=== PATIENT | male | born 1975 | race Caucasian/White ===

== ENCOUNTER 2017-01-17 10:04 | Inpatient (IN) | payer MEDICARE, MEDICAID ==
[~2017-01-17] VITALS: Ht 180.3 cm; Wt 103.7 kg
[2017-01-17] MEDS ORDERED: AMMONIA AROMATIC INHALANT (FLOOR STOCK) As Ordered ONE (10:07)
[2017-01-17 10:53] LABS: VENOUS BASE EXCESS 0.4 (-2.0-2.0); VENOUS O2 SATURATION 92.2 % (60.0-80.0); VENOUS PARTIAL PRESSURE CO2 36.7 mmHg (38.0-50.0); VENOUS PARTIAL PRESSURE O2 58.1 mmHg (30.0-50.0); VENOUS STANDARD HCO3 24.7 MEQ/L; VENOUS TOTAL CO2 25.3 MEQ/L (24.0-28.0)
--- NOTE | 2017-01-17 10:54 | REP ---
CT Head without contrast HISTORY: Altered mental status COMPARISON: 09/07/2010 There is no intraparenchymal hemorrhage, acute infarct, mass or midline shift. The ventricular system is normal in appearance. There is no extra cerebral collection. There is no fracture. The visualized sinuses are clear. IMPRESSION: There is no intracranial lesion. Signed by Ronald Weiner MD 01/17/2017 10:46 A
[2017-01-17 10:58] LABS: BASO % 0.2 % (0.0-1.0); EOS # 0.1 K/mm3 (0.0-0.50); EOS % 1.4 % (0.0-3.0); LARGE UNSTAINED CELL # 0.2 K/mm3 (0.0-0.4); LARGE UNSTAINED CELL % 1.6 % (0.0-4.0); LYMPH # 2.5 K/mm3 (1.5-4.5); LYMPH % 25.5 % (24.0-44.0); MEAN CORPUSCULAR HEMOGLOBIN 32.6 pg (27.0-33.0); MEAN CORPUSCULAR HGB CONC 34.1 g/dl (32.0-36.5); MEAN CORPUSCULAR VOLUME 95.6 fl (80.0-96.0); MONO # 0.4 K/mm3 (0.0-0.8); MONO % 3.6 % (0.0-5.0); NEUTROPHILS # 6.6 K/mm3 (1.8-7.7); NEUTROPHILS % 67.7 % (36.0-66.0); PLATELET COUNT, AUTOMATED 227 k/mm3 (150-450); RED CELL DISTRIBUTION WIDTH 11.9 % (11.5-14.5); WHITE BLOOD COUNT 9.7 K/mm3 (4.0-10.0)
[2017-01-17 11:15] LABS: OSMOLALITY SERUM 301 MOSM/KG (275-295)
[2017-01-17 11:33] LABS: ALBUMIN 3.9 GM/DL (3.2-5.2); ALBUMIN/GLOBULIN RATIO 1.18 (1.00-1.93); ALKALINE PHOSPHATASE 93 U/L (45-117); ALT/SGPT 20 U/L (12-78); ANION GAP 13 MEQ/L (8-16); AST/SGOT 12 U/L (15-37); BILIRUBIN,DIRECT 0.1 MG/DL (0.0-0.2); BILIRUBIN,TOTAL 0.6 MG/DL (0.2-1.0); BLOOD UREA NITROGEN 14 MG/DL (7-18); CALCIUM LEVEL 8.8 MG/DL (8.5-10.1); CARBON DIOXIDE LEVEL 24 MEQ/L (21-32); CHLORIDE LEVEL 108 MEQ/L (98-107); CREATININE FOR GFR 1.08 MG/DL (0.70-1.30); GLOMERULAR FILTRATION RATE > 60.0 (>60); GLUCOSE, FASTING 102 MG/DL (70-105); POTASSIUM SERUM 3.8 MEQ/L (3.5-5.1); SODIUM LEVEL 145 MEQ/L (136-145); TOTAL PROTEIN 7.2 GM/DL (6.4-8.2)
[2017-01-17] MEDS ORDERED: NS 1,000 ML IV ONE ×2 (11:45→13:15)
[2017-01-17] MEDS ORDERED: CLOZ100T2 PO (19:30)
[2017-01-17] MEDS ORDERED: STOO100C PO (19:30)
[2017-01-17] MEDS ORDERED: LOVA20TA2 PO (19:30)
[2017-01-17] MEDS ORDERED: GEOD40CA2 PO (19:30)
[2017-01-17 21:14] LABS: METHADONE URINE NEGATIVE (NEGATIVE)
--- NOTE | 2017-01-17 21:38 | ECGEPIP ---
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
[2017-01-18 01:51] VITALS: BP 169/78
[2017-01-18] MEDS ORDERED: ACETAMINOPHEN TAB 650MG DOSE (2X325MG) PO PRN (02:00)
[2017-01-18] MEDS ORDERED: MOM 30ML SUSPENSION UDC PO PRN (02:00)
[2017-01-18] MEDS ORDERED: MAALOX 30 ML SUSP *UDC PO PRN (02:00)
[2017-01-18 06:36] VITALS: BP 169/78
--- NOTE | 2017-01-18 09:54 | HPEPDOC ---
Medical History and Physical Date of Admission Jan 17, 2017 at 20:44 History and Physical PCP: None ATTENDING: Dr. Taco Escobedo HPI: 41 yo M admitted to [facility] for unspecified depressive disorder, being medically examined today. Patient states "I don't know" to all history questions. He does not know if he has a primary care provider. He states he does not know where he gets his medications prescribed. He does not make eye contact. There are currently no verbalized complaints or concerns. History is taken from the chart. Patient was brought to the emergency department by EMS after APS went to his residence and found him covered in vomit and feces. Apparently the patient had had a recent history of noncompliance with his medications. The patient was given 2 L IV fluids in the emergency department. Lactic acid on admission was noted to be 2.3 however follow-up was 0.9. The patient has had no further vomiting. No diarrhea. Denies any fevers, chills, weakness, fatigue, CUELLO, CP, SOB, cough, palpitations, abdominal pain, [place] or changes in bowel or bladder habits. PMHx: Hyperlipidemia Chronic constipation Schizophrenia Depression PSHX: None known SOCHX: Resides in: [place] Marital Status: Single Kids: None Employment: Unemployed Tobacco use: Denies ETOH: Denies Illicit Drugs: Denies IV Drug Use: Denies Tattoos done unprofessionally: Denies FAMHX: Mother: , cancer Father: Patient unable to provide Siblings: Patient unable to provide Children: None Unexpected deaths due to medical reasons: None. ROS: As noted in HPI, otherwise 11pt ROS of systems reviewed and unremarkable. Patient answers few questions. No verbalizes concerns. PE: GEN: 41 yo M, appears stated age. Well-nourished, well developed. No acute distress. Alert. Responds to very few questions. Looks away throughout exam and does not make eye contact. Answers " I don't know" often. HEENT: Normocephalic, atraumatic. Pupils are equal, round, and reactive to light. Extraocular movements are intact. No nystagmus appreciated. Sclera are nonicteric. Conjunctiva without injection. Nose midline. Nasal turbinates without bogginess. EACs both patent BL. TMs both visualized and child with good cone of light, no bulging or erythema. No facial asymmetry. Moist mucous membranes. Dentition poor. Pharynx pink and moist. Neck supple, trachea midline. No lymphadenopathy or thyromegaly appreciated. CHEST: Regular rate and rhythm, +S1, +S2 LUNGS: Clear to auscultation bilaterally. No wheezes, rales, or rhonchi. Breathing appears symmetric and easy. Patient is speaking in full sentences. No accessory muscle use. ABD: Round, soft, non-tender, non-distended. +Bowel sounds throughout. No rebound or guarding. No costovertebral angle tenderness. EXT: Pulses 2+ bilaterally dorsalis pedis and radial. No lower extremity edema appreciated. SKIN: [place], dry, warm. Capillary refill <2sec. No rashes. NEURO: Alert and oriented x 3. Cranial nerves III-XII are intact. No focal deficits appreciated. EK01/17/17 SINUS TACHYCARDIA ABNORMAL RHYTHM ECG NO PRIOR FOR COMPARISON. A&P: 41 yo M admitted to [facility] for unspecified depressive disorder 1. Psych. Plan per Psychiatry. EKG on file. 2. Hyperlipidemia. Continue lovastatin 20 mg daily. 3. Chronic constipation. Continue Colace 100 mg daily. 4. Follow up. No Primary Care Provider. Will attempt to establish PCP on discharge. 5. Staff member Ortiz present throughout exam. Vital Signs Vital Signs Date Time Temp Pulse Resp B/P (MAP) Pulse Ox O2 Delivery O2 Flow Rate FiO2 01/18/17 06:36 98.0 100 16 169/78 (108) 99 Room Air Laboratory Data Labs 24H Laboratory Tests 2 01/17/17 10:41: White Blood Count 9.7, Red Blood Count 4.51, Hemoglobin 14.7, Hematocrit 43.1, Mean Corpuscular Volume 95.6, Mean Corpuscular Hemoglobin 32.6, Mean Corpuscular Hemoglobin Concent 34.1, Red Cell Distribution Width 11.9, Platelet Count 227, Neutrophils (%) (Auto) 67.7H, Lymphocytes (%) (Auto) 25.5, Monocytes (%) (Auto) 3.6, Eosinophils (%) (Auto) 1.4, Basophils (%) (Auto) 0.2, Neutrophils # (Auto) 6.6, Lymphocytes # (Auto) 2.5, Monocytes # (Auto) 0.4, Eosinophils # (Auto) 0.1, Basophils # (Auto) 0.0, Large Unclassified Cells % 1.6 , Large Unclassified Cells # 0.2, Blood Gas Bicarbonate Standard 24.7, Venous Blood pH 7.437H, Venous Blood Partial Pressure CO2 36.7L, Venous Blood Partial Pressure O2 58.1H, Venous Blood Total Carbon Dioxide 25.3, Venous Blood HCO3 24.2, Venous Blood Oxygen Saturation 92.2H, Venous Blood Base Excess 0.4, Anion Gap 13, Glomerular Filtration Rate > 60.0, Osmolality 301H, Lactic Acid Level 2.3*H, Calcium Level 8.8, Aspartate Amino Transf (AST/SGOT) 12L, Alanine Aminotransferase (ALT/SGPT) 20, Alkaline Phosphatase 93, Total Bilirubin 0.6, Direct Bilirubin 0.1, Ammonia 18, Total Creatine Kinase 77, Creatine Kinase MB 1.0, Creatine Kinase MB Relative Index 1.29, Troponin I < 0.02, Total Protein 7.2, Albumin 3.9, Albumin/Globulin Ratio 1.18, Thyroid Stimulating Hormone (TSH ) 0.570, Salicylates Level < 1.7L, Acetaminophen Level < 2.0L, Ethyl Alcohol Level < 0.003 01/17/17 14:20: Lactic Acid Level 0.9 01/17/17 20:27: Urine Amphetamines Screen NEGATIVE, Urine Benzodiazepines Screen NEGATIVE, Urine Opiates Screen NEGATIVE, Urine Methadone Screen NEGATIVE, Urine Barbiturates Screen NEGATIVE, Urine Phencyclidine Screen NEGATIVE, Urine Cocaine Metabolite Screen NEGATIVE, Urine Cannabinoids Screen NEGATIVE CBC/BMP Laboratory Tests 01/17/17 10:41 Red Blood Count 4.51, Mean Corpuscular Volume 95.6, Mean Corpuscular Hemoglobin 32.6, Mean Corpuscular Hemoglobin Concent 34.1, Red Cell Distribution Width 11.9 , Neutrophils (%) (Auto) 67.7 H, Lymphocytes (%) (Auto) 25.5, Monocytes (%) ( Auto) 3.6, Eosinophils (%) (Auto) 1.4, Basophils (%) (Auto) 0.2, Neutrophils # ( Auto) 6.6, Lymphocytes # (Auto) 2.5, Monocytes # (Auto) 0.4, Eosinophils # (Auto ) 0.1, Basophils # (Auto) 0.0 Microbiology Microbiology 01/17/17 Blood Culture, Received Pending 01/17/17 Blood Culture, Received Pending Home Medications Scheduled Clozapine (Clozapine) 100 Mg Tab, 300 MG PO QHS Docusate Sodium (Stool Softener) 100 Mg Cap, 100 MG PO DAILY Lovastatin (Lovastatin) 20 Mg Tab, 20 MG PO DAILY Ziprasidone Hydrochloride (Geodon) 40 Mg Cap, 80 MG PO BID Allergies Coded Allergies: Aripiprazole (Verified Adverse Reaction, Unknown, muscle trouble, 01/17/17) Minda Armando Jan 18, 2017 09:54
[2017-01-18] MEDS: DOCUSATE SODIUM 100 MG CAP PO SCH (10:40)
[2017-01-18] MEDS: SIMVASTATIN 20 MG TAB PO SCH (10:40)
[2017-01-18 12:37] LABS: BASO % 0.5 % (0.0-1.0); EOS # 0.1 K/mm3 (0.0-0.50); LARGE UNSTAINED CELL # 0.1 K/mm3 (0.0-0.4); LARGE UNSTAINED CELL % 1.5 % (0.0-4.0); LYMPH # 1.8 K/mm3 (1.5-4.5); LYMPH % 24.7 % (24.0-44.0); MEAN CORPUSCULAR HEMOGLOBIN 32.9 pg (27.0-33.0); MEAN CORPUSCULAR HGB CONC 34.1 g/dl (32.0-36.5); MEAN CORPUSCULAR VOLUME 96.6 fl (80.0-96.0); MONO # 0.4 K/mm3 (0.0-0.8); MONO % 5.7 % (0.0-5.0); NEUTROPHILS # 4.6 K/mm3 (1.8-7.7); NEUTROPHILS % 65.6 % (36.0-66.0); PLATELET COUNT, AUTOMATED 179 k/mm3 (150-450); RED CELL DISTRIBUTION WIDTH 12.2 % (11.5-14.5)
[2017-01-18 18:00] VITALS: BP 142/69
[2017-01-18] MEDS: ZIPRASIDONE 20MG CAPSULE (GEODON) PO SCH (18:16)
[2017-01-18] MEDS: cloZAPine 25 MG TAB (S0136) PO SCH (21:00)
[2017-01-19 06:44] VITALS: BP 140/63
[2017-01-19] MEDS: DOCUSATE SODIUM 100 MG CAP PO SCH (08:25)
[2017-01-19] MEDS: ZIPRASIDONE 20MG CAPSULE (GEODON) PO SCH ×2 (08:25→18:03)
[2017-01-19] MEDS: SIMVASTATIN 20 MG TAB PO SCH (08:25)
--- NOTE | 2017-01-19 11:30 | MHHPE ---
DATE OF ADMISSION: 01/17/2017 CURRENT MEDICATION: - clozapine 300 mg at bedtime - Geodon 80 mg twice a day CHIEF COMPLAINT: The patient was brought to the emergency room by adult protective director case. HISTORY OF PRESENT ILLNESS: This is a 41-year-old white male single living by himself seen by the adult protective director case. The landlord had contacted [employer] ([facility]) due to the smell coming from his apartment. The director case found that he was covered in vomit and feces. The patient was obviously not taking care of himself. The patient is recently in care at the [facility], but has not been taking his psychotropics recently. The patient is not able to give any meaningful history. The staff in emergency contacted his grandfather who reports that the patient had not been taking his medication for a while. The grandfather believes that the patient has been decompensating and not safe to return home. The patient denies any current stressors. He is not a good historian. He denies any and all problems. He reports his appetite is fine. He claims his weight is stable. He does admit to poor concentration and difficulty sleeping. He is not able to explain why he stopped his taking medications. Outpatient records from the [facility] are not available at the time of dictation. PAST PSYCHIATRIC HISTORY: The patient's last psychiatric hospitalization apparently was about 10 years ago here at [facility]. We do have an old record dating from December 2005 with a reference to schizophrenia. He was treated by Dr. Welch on three different antipsychotics - Risperdal, Geodon and Abilify. The patient had a decompensation with a psychosis at that period of time due to poor medication compliance. At the time, he had requested to be sent to [facility], but that was not necessary due to his response to the psychotropics. Somewhere in the interim, the patient has been switched to Clozaril, but again with poor compliance as mentioned above. MEDICAL HISTORY: The patient denies allergies. The patient denies he is not a good historian, so this will need to be clarified. LEGAL HISTORY: None noted. CHEMICAL DEPENDENCY: The patient denies. SOCIAL HISTORY: Unable to obtain from the patient himself. He denies having any family in the area, but obviously his grandfather is a potential resource. FAMILY PSYCHIATRIC HISTORY: Unknown. MENTAL STATUS EXAMINATION: The patient appears alert. He is not cooperative. He is not sure how old he is. Responds "don't know" to all questions regarding orientation. Likely functional not organic.He claims his memory is poor. He appears to be responding to internal stimuli. He denies hearing voices, but is likely hallucinating. His eyes dart here and there. He has poor eye contact. He has obvious thought blocking. He appears paranoid and guarded. He does have body odor and poor hygiene. Insight and judgment appear quite impaired. He is a potential danger to himself due to his poor judgment and inability to care for self. ASSESSMENT: The patient has history of schizophrenia with recent decompensation. DIAGNOSIS: Schizophrenia, multiple episodes, currently in an acute episode. PLAN: Restart Geodon, restart clozapine, ramping up gradually as tolerated. Use of Ativan and Haldol as needed if necessary for psychosis treatment. 9.39 confirmed. Obtain old records from community clinic. [facility]ITAL[facility]
[2017-01-19 18:00] VITALS: BP 139/67
[2017-01-19] MEDS: cloZAPine 25 MG TAB (S0136) PO SCH (22:06)
[2017-01-20 06:52] VITALS: BP 142/79
[2017-01-20] MEDS: ZIPRASIDONE 20MG CAPSULE (GEODON) PO SCH ×2 (09:09→17:54)
[2017-01-20] MEDS: SIMVASTATIN 20 MG TAB PO SCH (09:09)
[2017-01-20] MEDS: DOCUSATE SODIUM 100 MG CAP PO SCH (09:09)
[2017-01-20 18:00] VITALS: BP 127/61
--- NOTE | 2017-01-20 19:48 | IPN ---
DATE: 01/19/2017 VITAL SIGNS: Temperature 97.9, pulse 55, respirations 18, blood pressure 140/63. CURRENT MEDICATIONS: - Clozaril 25 mg at bedtime - Geodon 40 mg twice a day with food HISTORY OF PRESENT ILLNESS: This is a 41-year-old white male with a history of schizophrenia with poor medication compliance who was admitted yesterday. Patient did not take his Clozaril last night. He did take the Geodon, however. He states his appetite is fine. He did eat breakfast this morning. He claims he slept well last night. Patient has been very oppositional yesterday, stating, "I don't know" to almost all questions. He still does not claim to know the date but is oriented to person and to place. He is able to give the location as [facility], [place]. Initially he denies having any family locally but then acknowledges the presence of his grandfather in the community. He states that he is still hearing the voices. He is not able to explain why he refused the Clozaril. He is encouraged to comply with his Clozaril dosage tonight. MENTAL STATUS EXAMINATION: Patient is lying in his bed but is a bit more verbal than yesterday. He is oriented to person and place but not the date. He denies feeling depressed. He does report hearing voices, however. He does appear to be paranoid, guarded with thought blocking. Grooming and hygiene are poor. Insight and judgment remain impaired. DIAGNOSIS: Schizophrenia, multiple episodes, currently in acute episode. PLAN: Encourage compliance with Clozaril tonight. No change in Geodon.
[2017-01-20] MEDS ORDERED: cloZAPine 25 MG TAB (S0136) PO SCH (21:00)
[2017-01-21 07:13] VITALS: BP 125/69
--- NOTE | 2017-01-21 08:38 | MHIPN ---
DATE: 01/20/2017 VITAL SIGNS: Temperature 98.5, pulse 97, respirations 18, blood pressure 142/ 79. CURRENT MEDICATION: - clozapine 25 mg at bedtime (hs) - Geodon 40 mg twice a day with food HISTORY OF PRESENT ILLNESS: The patient did take the Clozaril last night fortunately. He had been off the Clozaril for over 2 years, so we will need to ramp up the dose gradually. He states his appetite is good. He reports he slept well at night. He denies any problems. He is still isolating a lot in his room. He appears guarded. He appears paranoid. He does report auditory hallucinations. He has not able to give me the date. He is not even able to tell me his name. Does not appear to be organic in nature, but it appears to be evolutional. MENTAL STATUS EXAMINATION: The patient is alert. He is oriented to [facility], but can not give me his name or today's date. The patient still paranoid, guarded and is responding to internal stimuli. He does admit to auditory hallucinations today. Hygiene is poor. Insight and judgment remain quite impaired. DIAGNOSIS: 1. Schizophrenia, multiple episodes. Currently in acute episode. PLAN: Increase clozapine up to 50 mg at bedtime (hs). No change in Geodon. Staff to get old records from the community care clinic. RICH
[2017-01-21] MEDS: SIMVASTATIN 20 MG TAB PO SCH (09:56)
[2017-01-21] MEDS: DOCUSATE SODIUM 100 MG CAP PO SCH (09:56)
[2017-01-21] MEDS: ZIPRASIDONE 20MG CAPSULE (GEODON) PO SCH ×2 (09:56→18:17)
--- NOTE | 2017-01-21 13:07 | MHIPN ---
DATE: 01/21/2017 VITAL SIGNS: Temperature 97.1. Pulse 79. Respirations 18. Blood pressure 125/69. CURRENT MEDICATION: - Clozaril 50 mg nightly - Geodon 40 mg twice a day with food HISTORY OF PRESENT ILLNESS: Patient did again take his Clozaril last night. He is still isolating in bed. He avoids the other patients. He appears paranoid and guarded. His appetite is good, however. He is reporting sleeping well here at night. The Clozaril seems to help his sleep. He denies feeling depressed. He is willing to sign a release of information to speak to his adult protective worker and family members. He is not attending the milieu therapy program. MENTAL STATUS EXAMINATION: Patient is alert. Today, he is oriented to the place, [facility], also his name and the year. He does not know the month, however. He is still paranoid and guarded, but is more cooperative and less oppositional. He still responds to internal stimuli. He reports hearing voices. Grooming and hygiene are poor. Insight and judgment remain impaired. DIAGNOSIS: Schizophrenia, multiple episodes, currently an acute episode. PLAN: Increase Clozaril up to 75 mg nightly. No change in Geodon. Encourage milieu therapy involvement.
[2017-01-21 18:33] VITALS: BP 142/72
[2017-01-21] MEDS: cloZAPine 25 MG TAB (S0136) PO SCH (20:51)
[2017-01-22 06:57] VITALS: BP 107/57
[2017-01-22] MEDS: DOCUSATE SODIUM 100 MG CAP PO SCH (08:44)
[2017-01-22] MEDS: SIMVASTATIN 20 MG TAB PO SCH (08:44)
[2017-01-22] MEDS: ZIPRASIDONE 20MG CAPSULE (GEODON) PO SCH ×2 (08:45→18:14)
--- NOTE | 2017-01-22 14:40 | MHIPN ---
DATE: 01/22/2017 VITAL SIGNS Temperature 98.6, pulse 85, respirations 18, blood pressure 107/57. CURRENT MEDICATIONS: - clozapine 75 mg at night - Geodon 40 mg twice a day with food HISTORY OF PRESENT ILLNESS: The patient is still compliant with his medications, fortunately. He states that he did sleep well last night. He claims that his appetite is good. He states that he is still hearing voices but that they "are better." He volunteers that every time he gets hospitalized the voices improve. The patient denies feeling depressed. The patient is still isolating a lot in his room. Staff finally got him to sign a [facility]. The patient has dropped out of care there for 1 to 2 years without any psychiatric treatment. MENTAL STATUS EXAMINATION: The patient is alert. He is again oriented to place. He is naming the year but could not give the month, however. The patient remains paranoid. He is still guarded. He is still hearing voices and responding to internal stimuli. Grooming and hygiene remain poor. Insight and judgment remain impaired. DIAGNOSIS: Schizophrenia, multiple episodes, currently with acute episode. PLAN: Continue current psychotropics. Encourage engagement in milieu.
[2017-01-22 18:13] VITALS: BP 140/73
[2017-01-22] MEDS: cloZAPine 25 MG TAB (S0136) PO SCH (21:38)
[2017-01-23 07:18] VITALS: BP 129/61
[2017-01-23] MEDS: DOCUSATE SODIUM 100 MG CAP PO SCH (09:37)
[2017-01-23] MEDS: NICOTINE 21MG/24HR 1 EA TRANSDERMAL TD SCH (09:37)
[2017-01-23] MEDS: SIMVASTATIN 20 MG TAB PO SCH (09:37)
[2017-01-23] MEDS: ZIPRASIDONE 20MG CAPSULE (GEODON) PO SCH ×2 (09:37→18:00)
--- NOTE | 2017-01-23 12:42 | MHIPN ---
DATE OF SERVICE: 01/23/2017 VITAL SIGNS: Temperature 98.4, pulse 101, respiration 18, blood pressure 129/61. CURRENT MEDICATIONS: - clozapine 75 mg at bedtime - Geodon 40 mg twice a day with food HISTORY OF PRESENT ILLNESS: The patient again took his Clozaril last night. He slept better. His appetite is good, as well. He is still hearing the voices. The patient is isolating to his room most of the time. Any responses to staff are short and guarded. He avoids contact with the other patients. The patient had been off of this psychotropics for about 1 year prior to the hospitalization. The patient did give permission to contact the adult protective worker, who had been a major assistance in the weeks to months prior to admission. His apartment will need a deep cleaning prior to his returning there, as it is so soiled. MENTAL STATUS EXAMINATION: The patient is alert. He is oriented to place and year only. He is still paranoid and guarded. He is still hearing voices. Grooming and hygiene remain poor. Insight and judgment remain impaired. Not voicing any wish to harm self or others. DIAGNOSIS: Schizophrenia, multiple episodes, currently with acute episode. PLAN: Increase Clozaril to 100 mg at bedtime.
--- NOTE | 2017-01-23 16:14 | IPNPDOC ---
Date Seen The patient was seen on 01/23/17. Progress Note HPI: 41 yo M admitted to [facility] for unspecified depressive disorder. I am requested to evaluate the patient for right heel pain. He does not recall how long it has been going on. He points in general to the right foot. He is not sure if it is achy or sharp. He does not report any swelling. He does not recall any injury to the right foot. He does not recall if he has pain when he first gets up in the morning. Patient states "I don't know" to many history questions. Denies any fevers, chills, weakness, fatigue, CUELLO, CP, SOB, cough, palpitations, abdominal pain, [place] or changes in bowel or bladder habits. PMHx: Hyperlipidemia Chronic constipation Schizophrenia Depression PSHX: None known PE: GEN: 41 yo M, appears stated age. Well-nourished, well developed. No acute distress. Alert. Responds to very few questions. Looks away throughout exam and does not make eye contact. Answers " I don't know" often. HEENT: Normocephalic, atraumatic. Pupils are equal, round, and reactive to light. Extraocular movements are intact. No nystagmus appreciated. Sclera are nonicteric. Conjunctiva without injection. Nose midline. Nasal turbinates without bogginess. EACs both patent BL. TMs both visualized and child with good cone of light, no bulging or erythema. No facial asymmetry. Moist mucous membranes. Dentition poor. Pharynx pink and moist. Neck supple, trachea midline. No lymphadenopathy or thyromegaly appreciated. CHEST: Regular rate and rhythm, +S1, +S2 LUNGS: Clear to auscultation bilaterally. No wheezes, rales, or rhonchi. Breathing appears symmetric and easy. Patient is speaking in full sentences. No accessory muscle use. ABD: Round, soft, non-tender, non-distended. +Bowel sounds throughout. No rebound or guarding. No costovertebral angle tenderness. EXT: Pulses 2+ bilaterally dorsalis pedis and radial. No lower extremity edema appreciated. There is no calf tenderness, swelling, or erythema. There is no tenderness with palpation around the right foot, right heel or plantar aspect of the foot. No erythema. No skin lesions. No edema. No ecchymotic areas. SKIN: [place], dry, warm. Capillary refill <2sec. No rashes. NEURO: Alert and oriented x 3. Cranial nerves III-XII are intact. No focal deficits appreciated. EK01/17/17 SINUS TACHYCARDIA ABNORMAL RHYTHM ECG NO PRIOR FOR COMPARISON. A&P: 41 yo M admitted to [facility] for unspecified depressive disorder 1. Psych. Plan per Psychiatry. EKG on file. 2. Hyperlipidemia. Continue lovastatin 20 mg daily. 3. Chronic constipation. Continue Colace 100 mg daily. 4. Follow up. No Primary Care Provider. Will attempt to establish PCP on discharge. 5. Right foot pain. Check x-ray of the right foot. Elevate as needed. Ice as needed. Tylenol as needed. Possibly related to plantar fasciitis, supportive shoes may be helpful. 6. Staff member Ortiz present throughout exam. VS, I&O, 24H, Fishbone Vital Signs/I&O Vital Signs Date Time Temp Pulse Resp B/P (MAP) Pulse Ox O2 Delivery O2 Flow Rate FiO2 01/23/17 07:18 98.4 101 18 129/61 (83) Room Air 01/18/17 06:36 99 Laboratory Data Microbiology Microbiology 01/17/17 Blood Culture - Final, Complete NO GROWTH AFTER 5 DAYS 01/17/17 Blood Culture - Final, Complete NO GROWTH AFTER 5 DAYS Minda Armando Jan 23, 2017 16:14
--- NOTE | 2017-01-23 16:24 | REP ---
RIGHT FOOT, COMPLETE: 01/23/2017. Clinical history: Pain. Findings: No prior study. There are no heel spurs. Subtalar joints are intact. Talonavicular and calcaneocuboid articulations normal. Tarsal bones and their articulations are intact. Metatarsals and phalanges show no fracture or focal lesion. No erosions or destructive changes about the IP or MTP joints. Impression: 1. No heel spurs, fracture, avulsion, subluxation or other acute finding. Signed by Jaziel Martinez MD 01/23/2017 05:04 P
[2017-01-23 18:07] VITALS: BP 131/69
[2017-01-23] MEDS: traZODone 50 MG TAB PO PRN (21:40)
[2017-01-23] MEDS: cloZAPine 100 MG TAB (S0136) PO SCH (21:40)
[2017-01-24 07:24] VITALS: BP 155/68
[2017-01-24] MEDS: ZIPRASIDONE 20MG CAPSULE (GEODON) PO SCH ×2 (09:08→18:25)
[2017-01-24] MEDS: DOCUSATE SODIUM 100 MG CAP PO SCH (09:08)
[2017-01-24] MEDS: SIMVASTATIN 20 MG TAB PO SCH (09:08)
[2017-01-24] MEDS: NICOTINE 21MG/24HR 1 EA TRANSDERMAL TD SCH (09:08)
[2017-01-24 18:00] VITALS: BP 144/72
--- NOTE | 2017-01-24 18:17 | MHIPN ---
DATE: 01/24/2017 VITAL SIGNS: Temperature 98.5, pulse 91, respiratory rate 16, blood pressure 155/68. CURRENT MEDICATIONS: - clozapine 100 mg at night - Geodon 40 mg twice a day with food - trazodone 50 mg at night as needed HISTORY OF PRESENT ILLNESS: The patient reports good medication compliance. He still is isolating a lot due to his paranoia, he spends a lot of time in his bed. He is sleeping well. His appetite is good. He does get up and go for meals. He is still hearing the voices. He gives the date as 02/28/2017. He can tell me his last name. This is progress from several days ago, even though he is off by one month. MENTAL STATUS EXAMINATION: The patient is alert and orientation is still problematic. His answers appear to be volitional, however. The patient remains paranoid and somewhat guarded. The patient is still hearing voices. Grooming and hygiene remain poor. Insight and judgment seem impaired. He is not homicidal. No suicidal. Responses to all questions typically are one word answers. DIAGNOSIS: Schizophrenia multiple episodes. Currently with an acute episode. PLAN: Continue current psychotropics.
[2017-01-24] MEDS: cloZAPine 100 MG TAB (S0136) PO SCH (20:14)
[2017-01-25 07:00] VITALS: BP 123/60
[2017-01-25] MEDS: ZIPRASIDONE 20MG CAPSULE (GEODON) PO SCH ×2 (08:42→18:09)
[2017-01-25] MEDS: SIMVASTATIN 20 MG TAB PO SCH (08:43)
[2017-01-25] MEDS: DOCUSATE SODIUM 100 MG CAP PO SCH (08:43)
[2017-01-25] MEDS: NICOTINE 21MG/24HR 1 EA TRANSDERMAL TD SCH (08:44)
[2017-01-25 18:00] VITALS: BP 136/73
--- NOTE | 2017-01-25 19:29 | MHIPN ---
DATE: 01/25/2017 VITAL SIGNS: Temperature 98.2, pulse 95, respirations 19, blood pressure 123/60. CURRENT MEDICATIONS: - clozapine 100 mg at bedtime - Geodon 40 mg twice a day with food - trazodone 50 mg at bedtime as needed HISTORY OF PRESENT ILLNESS: Patient is still isolating. He is still paranoid. He is compliant with the medication. He is not interacting with his peers on the unit. He admits that he has poor medication compliance as an outpatient. He wishes now that he had never [facility] ([facility]). MENTAL STATUS EXAMINATION: Patient is alert and oriented to self and the year but not the month. The patient is still reporting prominent auditory hallucinations. Insight appears poor. Judgment appears limited. Responses are usually pretty minimal. DIAGNOSIS: Schizophrenia, multiple episodes with current acute episode. PLAN: Convert to [facility] with plans to transfer to [facility]. RICH
[2017-01-25] MEDS: cloZAPine 100 MG TAB (S0136) PO SCH (22:32)
[2017-01-26 06:56] VITALS: BP 146/70
[2017-01-26] MEDS: SIMVASTATIN 20 MG TAB PO SCH (08:33)
[2017-01-26] MEDS: ZIPRASIDONE 20MG CAPSULE (GEODON) PO SCH ×2 (08:33→18:00)
[2017-01-26] MEDS: DOCUSATE SODIUM 100 MG CAP PO SCH (08:33)
[2017-01-26] MEDS: NICOTINE 21MG/24HR 1 EA TRANSDERMAL TD SCH (08:34)
[2017-01-26] MEDS ORDERED: **PENDING PPD ENTRY XX SCH (09:00)
[2017-01-26] MEDS ORDERED: TUBERCULIN PPD 5 UNITS/0.1 ML ID ONE (16:00)
[2017-01-26 18:00] VITALS: BP 124/62
[2017-01-26] MEDS: traZODone 50 MG TAB PO PRN (20:10)
[2017-01-26] MEDS: cloZAPine 100 MG TAB (S0136) PO SCH (20:10)
[2017-01-27 06:37] VITALS: BP 154/70
[2017-01-27] MEDS: ZIPRASIDONE 20MG CAPSULE (GEODON) PO SCH ×2 (07:05→18:08)
[2017-01-27] MEDS: DOCUSATE SODIUM 100 MG CAP PO SCH (07:58)
[2017-01-27] MEDS: SIMVASTATIN 20 MG TAB PO SCH (07:58)
[2017-01-27] MEDS: NICOTINE 21MG/24HR 1 EA TRANSDERMAL TD SCH (07:59)
[2017-01-27 18:36] VITALS: BP 140/76
[2017-01-27] MEDS: cloZAPine 100 MG TAB (S0136) PO SCH (21:37)
[2017-01-27] MEDS: traZODone 50 MG TAB PO PRN (21:38)
[2017-01-28 07:15] VITALS: BP 118/58
[2017-01-28] MEDS: NICOTINE 21MG/24HR 1 EA TRANSDERMAL TD SCH (08:23)
[2017-01-28] MEDS: SIMVASTATIN 20 MG TAB PO SCH (08:23)
[2017-01-28] MEDS: ZIPRASIDONE 20MG CAPSULE (GEODON) PO SCH ×2 (08:23→17:42)
[2017-01-28] MEDS: DOCUSATE SODIUM 100 MG CAP PO SCH (08:23)
--- NOTE | 2017-01-28 13:24 | MHIPN ---
DATE: 01/28/2017 Vital signs: Temperature 98.8, pulse 99, respirations 16, blood pressure 118/58. CURRENT MEDICATIONS: - clozapine 100 mg at bedtime - Geodon 40 mg twice a day with food - trazodone 50 mg at bedtime as needed HISTORY OF PRESENT ILLNESS: Patient is still isolating a lot to his bedroom. He typically is lying down throughout the daytime. He goes out to get his meals, but then retreats to his bedroom avoiding contact from his peers and staff members. Denies problems with depression. Patient is being referred to [facility] due to his long history of psychosis. MENTAL STATUS EXAMINATION: Patient is alert, is oriented to place and year. He gives the month as February again. He is still hearing voices. He is paranoid. He is guarded. Insight and judgment remain poor. DIAGNOSIS: Schizophrenia, multiple episodes with current acute episode. PLAN: Continue psychotropics with [place] transfer.
[2017-01-28] MEDS ORDERED: PPD DOCUMENTATION ENTRY MISC XX ONE (16:00)
[2017-01-28 18:00] VITALS: BP 155/76
[2017-01-28] MEDS: traZODone 50 MG TAB PO PRN (21:08)
[2017-01-28] MEDS: cloZAPine 100 MG TAB (S0136) PO SCH (21:08)
[2017-01-29 07:05] VITALS: BP 129/60
[2017-01-29] MEDS: NICOTINE 21MG/24HR 1 EA TRANSDERMAL TD SCH (08:30)
[2017-01-29] MEDS: SIMVASTATIN 20 MG TAB PO SCH (08:30)
[2017-01-29] MEDS: DOCUSATE SODIUM 100 MG CAP PO SCH (08:30)
[2017-01-29] MEDS: ZIPRASIDONE 20MG CAPSULE (GEODON) PO SCH ×2 (08:31→18:04)
--- NOTE | 2017-01-29 10:59 | MHIPN ---
DATE OF SERVICE: 01/29/2017 VITAL SIGNS: Temperature 98.0, pulse 95, respiration 18, blood pressure 129/60. CURRENT MEDICATIONS: - clozapine 100 mg at bedtime - Geodon 40 mg twice a day - trazodone 50 mg at bedtime as needed HISTORY OF PRESENT ILLNESS: The patient spends most of his day in bed. He has little interaction with staff or other patients. Will go out to the [facility] briefly for meals but then returns to his room. He has shown a bit more interest in his activities of daily living (ADLs) for the last day or two. He shaved. He showered. The patient volunteers little. He is mostly mute during conversations with me and staff. Eye contact is poor. He is now denying hearing voices but could well be covering. He does still appear quite paranoid and guarded. The patient appears to be tolerating psychotropics well. The patient states that he feels comfortable with being transferred to [facility] for long-term care. The patient's electrocardiogram (EKG) on 01/17/2017 revealed QTc interval of 441, which is within normal limits. MENTAL STATUS EXAMINATION: The patient appears alert. He is oriented to his place, his name, and the year only. He still gives the month as February. He denies hearing voices but does appear paranoid and quite guarded. Insight and judgment remain poor. Grooming and hygiene do appear improved. DIAGNOSIS: Schizophrenia, multiple episodes, in current acute episode. PLAN: Increase Geodon to 60 mg twice a day with food. Staff to get repeat EKG to monitor QTc interval. Staff working on transfer to [facility].
[2017-01-29 18:00] VITALS: BP 129/81
[2017-01-29] MEDS: cloZAPine 100 MG TAB (S0136) PO SCH (21:05)
[2017-01-29] MEDS: traZODone 50 MG TAB PO PRN (21:05)
[2017-01-30 06:57] VITALS: BP 144/67
[2017-01-30] MEDS: ZIPRASIDONE 20MG CAPSULE (GEODON) PO SCH ×2 (09:38→18:35)
[2017-01-30] MEDS: NICOTINE 21MG/24HR 1 EA TRANSDERMAL TD SCH (09:39)
[2017-01-30] MEDS: SIMVASTATIN 20 MG TAB PO SCH (09:39)
[2017-01-30] MEDS: DOCUSATE SODIUM 100 MG CAP PO SCH (09:39)
[2017-01-30 18:00] VITALS: BP 147/89
[2017-01-30] MEDS: traZODone 50 MG TAB PO PRN (20:12)
[2017-01-30] MEDS: cloZAPine 100 MG TAB (S0136) PO SCH (20:12)
[2017-01-31 06:31] VITALS: BP 143/62
[2017-01-31] MEDS: NICOTINE 21MG/24HR 1 EA TRANSDERMAL TD SCH (09:16)
[2017-01-31] MEDS: DOCUSATE SODIUM 100 MG CAP PO SCH (09:16)
[2017-01-31] MEDS: SIMVASTATIN 20 MG TAB PO SCH (09:16)
[2017-01-31] MEDS: ZIPRASIDONE 20MG CAPSULE (GEODON) PO SCH ×2 (09:16→19:03)
[2017-01-31 18:00] VITALS: BP 148/76
--- NOTE | 2017-01-31 19:46 | ECGEPIP ---
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
[2017-01-31] MEDS: cloZAPine 100 MG TAB (S0136) PO SCH (22:04)
[2017-01-31] MEDS: traZODone 50 MG TAB PO PRN (22:04)
[2017-02-01 06:21] VITALS: BP 146/75
[2017-02-01] MEDS: SIMVASTATIN 20 MG TAB PO SCH (09:04)
[2017-02-01] MEDS: NICOTINE 21MG/24HR 1 EA TRANSDERMAL TD SCH (09:04)
[2017-02-01] MEDS: DOCUSATE SODIUM 100 MG CAP PO SCH (09:04)
[2017-02-01] MEDS: ZIPRASIDONE 20MG CAPSULE (GEODON) PO SCH ×2 (09:05→17:21)
--- NOTE | 2017-02-01 13:10 | MHIPN ---
DATE: 01/30/2017 VITAL SIGNS: Temperature 98.5, pulse 97, respirations 20, blood pressure 144/67. CURRENT MEDICATION: - Geodon 60 mg twice daily with food - Clozaril 100 mg at bedtime - trazodone 50 mg at bedtime as needed HISTORY OF PRESENT ILLNESS: Patient is still isolating despite encouragement to become involved with hospital milieu. Patient does get up briefly for meals but the retreats to his room, lying on his bed. He is not sleeping but appears to be daydreaming. He states his appetite is fine. Yesterday he denied any auditory hallucinations. Today he admits that he does still have them but that he ignores them. He denies any orthostatic issues. Patient did show and shave yesterday so his hygiene is improved. Patient did get his EKG yesterday, results are pending. MENTAL STATUS EXAMINATION: Patient is alert. He is now oriented to the month as well as the year. Patient does report hearing voices but he ignores them. Patient is still paranoid and guarded. Insight and judgment remain poor. Grooming and hygiene is improved. Not voicing any homicidal or suicidal ideation. DIAGNOSIS: Schizophrenia multiple episodes and current acute episode. PLAN: Continues psychotropics. Staff working on transfer to [facility] which he is cooperative with.
[2017-02-01 18:00] VITALS: BP 130/60
[2017-02-01] MEDS: traZODone 50 MG TAB PO PRN (20:30)
[2017-02-01] MEDS: cloZAPine 100 MG TAB (S0136) PO SCH (20:31)
--- NOTE | 2017-02-02 02:27 | MHIPN ---
DATE OF SERVICE: 01/31/2017 VITAL SIGNS: Temperature 98.6, pulse 99, respirations 18, blood pressure 143/62. CURRENT MEDICATIONS: - Geodon 60 mg twice a day - clozapine 100 mg nightly - trazodone 50 mg nightly as needed HISTORY OF PRESENT ILLNESS: Patient is still isolating. Patient attends some groups according to staff, but in turn will stay horizontal in his bed. His appetite is good. He reports sleeping well at night. He is cooperative with plans to transfer to [facility] for long-term care. He does admit to hearing voices, but cannot make out the content. Patient's updated EKG is not yet interpreted. MENTAL STATUS EXAMINATION: Patient is off and on responsive. He is not exactly mute, but volunteers little. He does appear paranoid and guarded. He does report auditory hallucinations, but cannot describe the content. Insight and judgment remain poor. Patient is aware of person and place, but the date remains problematic. DIAGNOSIS: Schizophrenia, multiple episodes with current acute episode. PLAN: Continue psychotropics. Obtain results of EKG.
[2017-02-02 06:53] VITALS: BP 125/61
[2017-02-02] MEDS: ZIPRASIDONE 20MG CAPSULE (GEODON) PO SCH ×2 (08:20→18:00)
[2017-02-02] MEDS: DOCUSATE SODIUM 100 MG CAP PO SCH (08:20)
[2017-02-02] MEDS: NICOTINE 21MG/24HR 1 EA TRANSDERMAL TD SCH (08:20)
[2017-02-02] MEDS: SIMVASTATIN 20 MG TAB PO SCH (08:20)
[2017-02-02 18:00] VITALS: BP 147/83
[2017-02-02] MEDS: traZODone 50 MG TAB PO PRN (21:49)
[2017-02-02] MEDS: cloZAPine 100 MG TAB (S0136) PO SCH (21:49)
[2017-02-03 07:06] VITALS: BP 158/70
[2017-02-03] MEDS: ZIPRASIDONE 20MG CAPSULE (GEODON) PO SCH ×2 (08:10→18:11)
[2017-02-03] MEDS: SIMVASTATIN 20 MG TAB PO SCH (08:10)
[2017-02-03] MEDS: NICOTINE 21MG/24HR 1 EA TRANSDERMAL TD SCH (08:10)
[2017-02-03] MEDS: DOCUSATE SODIUM 100 MG CAP PO SCH (08:10)
--- NOTE | 2017-02-03 12:15 | MHIPN ---
DATE: 02/01/2017 VITAL SIGNS: Temperature 99.0, pulse 104, respirations 18, blood pressure 146/75. CURRENT MEDICATIONS: - Clozaril 100 mg at bedtime - Geodon 60 mg twice a day with food - trazodone 15 mg at bedtime as needed Patient is still isolating a lot. He is not able to explain why. He does admit to some paranoia and not feeling comfortable around his peers on the unit. The patient now reports that the auditory hallucinations are again quite prominent. He claims that they are "annoying" and would like psychotropics increased, which appears appropriate. The patient's EKG was reviewed. His QTc interval is within normal limits at 446. Several weeks ago, it was about the same at 441. He appears to be tolerating psychotics well. 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 The patient informed that he will have a new psychiatric as of next week. MENTAL STATUS EXAMINATION: Patient remains alert and somewhat better oriented. He now gives the date as sometime in January 2017. He knows his name and he is oriented to place here at [facility]. Patient reports auditory hallucinations are more prominent. Patient is still quite paranoid, guarded and isolative. Insight and judgment remain poor. Grooming and hygiene seem somewhat improved. Patient unable to take care of himself in my opinion. DIAGNOSIS: Schizophrenia, multiple episodes, and current acute episode of psychosis. PLAN: Increase Clozaril to 150 mg at bedtime. Patient encouraged to be out and about in the hospital milieu.
[2017-02-03 18:00] VITALS: BP 144/67
[2017-02-03] MEDS: cloZAPine 100 MG TAB (S0136) PO SCH (21:33)
[2017-02-03] MEDS: traZODone 50 MG TAB PO PRN (21:33)
[2017-02-04 06:25] VITALS: BP 148/74
[2017-02-04] MEDS: NICOTINE 21MG/24HR 1 EA TRANSDERMAL TD SCH (09:24)
[2017-02-04] MEDS: DOCUSATE SODIUM 100 MG CAP PO SCH (09:24)
[2017-02-04] MEDS: SIMVASTATIN 20 MG TAB PO SCH (09:24)
[2017-02-04] MEDS: ZIPRASIDONE 20MG CAPSULE (GEODON) PO SCH ×2 (09:24→18:33)
[2017-02-04] MEDS: traZODone 50 MG TAB PO PRN (20:56)
[2017-02-04] MEDS: cloZAPine 100 MG TAB (S0136) PO SCH (20:57)
[2017-02-05 07:34] VITALS: BP 122/68
[2017-02-05] MEDS: SIMVASTATIN 20 MG TAB PO SCH (08:07)
[2017-02-05] MEDS: DOCUSATE SODIUM 100 MG CAP PO SCH (08:07)
[2017-02-05] MEDS: NICOTINE 21MG/24HR 1 EA TRANSDERMAL TD SCH (08:07)
--- NOTE | 2017-02-05 08:07 | MHIPNPDOC ---
[facility] Progress Note Progress Note DATE OF SERVICE: 02/04/17 HISTORY: Patient was evaluated for his progress in the inpatient psychiatric unit on evaluation and patient remains psychotic and internally preoccupied. He reported that he has been eating fine, but his sleep is still not good with multiple interruptions. He remains isolated most of the day with minimum interaction with staff, even after multiple encouragements patient reported taking his medications regularly and denies any side effects. He denies any suicidal or homicidal ideations. He is aware and willing to go to inpatient [facility] in [place]. VITAL SIGNS: See below. CURRENT MEDICATIONS: - Clozaril 100 mg at bedtime - Geodon 60 mg twice a day with food - trazodone 15 mg at bedtime as needed MENTAL STATUS EXAMINATION: DIAGNOSES: 1. Schizophrenia- current acute psychosis episode MANAGEMENT PLAN: Continue current treatment. TIME SPENT:. 15 minutes. Vital Signs Vital Signs Date Time Temp Pulse Resp B/P (MAP) Pulse Ox O2 Delivery O2 Flow Rate FiO2 02/05/17 07:34 99.3 101 16 122/68 (86) 02/04/17 06:25 Room Air Current Medications Current Medications Clozapine (Clozaril) 150 mg QHS PO Last administered on 02/04/17 20:57; Start 02/01/17 at 21:00; Stop 02/08/17 at 20:59 Ziprasidone (Geodon) 60 mg BIDWM PO Last administered on 02/04/17 18:33; Start 01/29/17 at 18:00; Stop 02/28/17 at 17:59 Allergies Coded Allergies: Aripiprazole (Verified Adverse Reaction, Unknown, muscle trouble, 01/17/17) TRAE SHAFFER MD Feb 05, 2017 08:07
[2017-02-05] MEDS ORDERED: MILKSUS PO (08:20)
[2017-02-05] MEDS ORDERED: NICO21PAT TD (08:20)
[2017-02-05] MEDS ORDERED: MYLASSUD PO (08:20)
[2017-02-05] MEDS ORDERED: CLOZ100T2 PO (08:20)
[2017-02-05] MEDS ORDERED: TRAZO50TA PO (08:20)
[2017-02-05] MEDS ORDERED: SIMV20TA2 PO (08:20)
[2017-02-05] MEDS ORDERED: GEOD20CA14 PO (08:20)
[2017-02-05] MEDS ORDERED: MAPA325T3 PO (08:20)
[2017-02-05] MEDS: ZIPRASIDONE 20MG CAPSULE (GEODON) PO SCH (08:34)
--- NOTE | 2017-02-05 10:21 | MHDSPDOC ---
[facility] Discharge Summary Discharge Summary DATE OF ADMISSION: Jan 17, 2017 at 20:44 DATE OF DISCHARGE: 02/05/2017 DISCHARGE DIAGNOSES: 1.Schizophrenia REASON FOR ADMISSION: Disorganized behavior, not able to take care of self From H&P at admission "This is a 41-year-old white male single living by himself seen by the adult protective case maker. The landlord had contacted Department of [employer] ([facility]) due to the smell coming from his apartment. The case maker found that he was covered in vomit and feces. The patient was obviously not taking care of himself. The patient is recently in care at the [facility], but has not been taking his psychotropics recently. The patient is not able to give any meaningful history. The staff in emergency contacted his grandfather who reports that the patient had not been taking his medication for a while. The grandfather believes that the patient has been decompensating and not safe to return home. The patient denies any current stressors. He is not a good historian. He denies any and all problems. He reports his appetite is fine. He claims his weight is stable. He does admit to poor concentration and difficulty sleeping. He is not able to explain why he stopped his taking medications. [facility] are not available at the time of dictation." CONSULTANTS INVOLVED: None HOSPITAL COURSE: Patient was admitted to inpatient psychiatry unit and his medications were restarted. Patient is a poor historian and was not able to give clear history of whether he was able to take his medications regularly on not. Clozapin & Geodon was started again and titrated up, patient improved a little bit on his hygiene and grooming, but remains internally preoccupied and disheveled. He diminished to himself and has little participation in any of the activities in the unit or any interaction with anyone in the unit. He denies any suicidal or homicidal ideations but still need long-term treatment for [facility] in a [facility]. DISCHARGE ASSESSMENT: Patient remains disorganized and psychotic, lot of thought blocking, MENTAL STATUS EXAMINATION ON DISCHARGE: 41yo male lying in the bed, looks appropriate for the stated age,poor hygiene and grooming, decreased psychomotor activities, no abnormal movements, limited eye contact, internally preoccupied, speech is normal in rate, rhythm, amount and monotonous, mood is 'fine', affect constricted and mood incongruent, has thought blocking, & at times derailment, denies suicidal and homicidal ideations , reported having auditory hallucinations, paranoid, aaox3, fair immediate, short term and [facility] memory, poor insight, judgement and fair impulse control MEDICATIONS ON DISCHARGE: - Clozaril 100 mg at bedtime - Geodon 60 mg twice a day with food - trazodone 15 mg at bedtime as needed PLAN/FOLLOWUP ARRANGEMENTS: Patient to be transferred to inpatient psychiatry unit in [facility] in [place]. Vital Signs/I&Os Vital Signs Date Time Temp Pulse Resp B/P (MAP) Pulse Ox O2 Delivery O2 Flow Rate FiO2 02/05/17 07:34 99.3 101 16 122/68 (86) 02/04/17 06:25 Room Air Medications Scheduled Clozapine (Clozapine) 100 Mg Tab, 150 MG PO QHS for psychosis for 30 Days, #45 Docusate Sodium (Stool Softener) 100 Mg Cap, 100 MG PO DAILY, (Reported) Nicotine (Nicotine Transdermal Syst) 21 Mg/24 Hr Dis, 1 PATCH TD DAILY for NICOTINE WITHDRAWAL for 30 Days, #30 Simvastatin (Simvastatin) 20 Mg Tab, 20 MG PO DAILY for hyperlipidemia for 30 Days, #30 Ziprasidone Hydrochloride (Geodon) 20 Mg Cap, 60 MG PO BIDWM for psychosis for 30 Days, #180 Scheduled PRN Acetaminophen (Mapap) 325 Mg Tab, 650 MG PO Q6HP PRN for HEADACHE or DISCOMFORT for 30 Days, #90 Aluminum/Magnesium/Simeth (Mag-Al Plus 200-200-20 mg/5Ml) 30 Ml Susp, 30 ML PO Q4HP PRN for HEARTBURN/INDIGESTION for 30 Days, #1 Milk Of Magnesia (Milk of Magnesia) 1,200 Mg/15 Ml Rose Mary, 30 ML PO DAILYPRN PRN for CONSTIPATION for 30 Days, #1 Trazodone HCl (Trazodone HCl) 50 Mg Tab, 50 MG PO QHSP PRN for INSOMNIA for 30 Days, #30 Allergies Coded Allergies: Aripiprazole (Verified Adverse Reaction, Unknown, muscle trouble, 01/17/17) TRAE SHAFFER MD Feb 05, 2017 10:21
== END 2017-02-05 13:00 | disposition home or self-care (01) | DRG 885 ==
LOC: M ED 10:04 → M ED INP 20:44 → M PSY 01-18 00:35
PROVIDERS: ADMIT Psychiatry & Neurology Psychiatry; ATTEND Psychiatry & Neurology Psychiatry
DX: F20.9 Schizophrenia, unspecified (principal); Z79.899 Other long term (current) drug therapy; Z88.8 Allergy status to other drugs, medicaments and biological substances; K59.00 Constipation, unspecified; E78.5 Hyperlipidemia, unspecified

== ENCOUNTER 2017-08-07 15:40 | Inpatient (IN) | payer MEDICARE, MEDICAID ==
[2017-08-07 16:54] LABS: HEMATOCRIT 46.9 % (42.0-52.0); HEMOGLOBIN 15.4 g/dl (14.0-18.0); MEAN CORPUSCULAR HEMOGLOBIN 30.4 pg (27.0-33.0); MEAN CORPUSCULAR HGB CONC 32.8 g/dl (32.0-36.5); MEAN CORPUSCULAR VOLUME 92.7 fl (80.0-96.0); PLATELET COUNT, AUTOMATED 245 10^3/uL (150-450); RED BLOOD COUNT 5.06 10^6/uL (4.30-6.10); RED CELL DISTRIBUTION WIDTH 13.2 % (11.5-14.5); WHITE BLOOD COUNT 9.2 10^3/uL (4.0-10.0)
[2017-08-07 17:12] LABS: AMPHETAMINES LEVEL URINE NEGATIVE (NEGATIVE); BARBITURATES URINE NEGATIVE (NEGATIVE); BENZODIAZEPINES URINE NEGATIVE (NEGATIVE); CANNABINOIDS URINE NEGATIVE (NEGATIVE); COCAINE METABOLITE URINE NEGATIVE (NEGATIVE); METHADONE URINE NEGATIVE (NEGATIVE); OPIATES URINE NEGATIVE (NEGATIVE); PHENCYCLIDINE URINE NEGATIVE (NEGATIVE)
[2017-08-07 17:25] LABS: ALBUMIN 4.5 GM/DL (3.2-5.2); ALBUMIN/GLOBULIN RATIO 1.25 (1.00-1.93); ALKALINE PHOSPHATASE 98 U/L (45-117); ALT/SGPT 24 U/L (12-78); ANION GAP 9 MEQ/L (8-16); AST/SGOT 10 U/L (7-37); BILIRUBIN,DIRECT < 0.1 MG/DL (0.0-0.2); BILIRUBIN,TOTAL 0.4 MG/DL (0.2-1.0); BLOOD UREA NITROGEN 13 MG/DL (7-18); CALCIUM LEVEL 8.9 MG/DL (8.5-10.1); CARBON DIOXIDE LEVEL 24 MEQ/L (21-32); CHLORIDE LEVEL 108 MEQ/L (98-107); CREATININE FOR GFR 1.09 MG/DL (0.70-1.30); ETHYL ALCOHOL (ETHANOL) < 0.003 % (0.000-0.010); GLOMERULAR FILTRATION RATE > 60.0 (>60); GLUCOSE, FASTING 101 MG/DL (70-100); POTASSIUM SERUM 3.8 MEQ/L (3.5-5.1); SALICYLATE LEVEL 2.8 MG/DL (5.0-30.0); SODIUM LEVEL 141 MEQ/L (136-145); TOTAL PROTEIN 8.1 GM/DL (6.4-8.2)
[2017-08-07 17:28] LABS: ACETAMINOPHEN LEVEL < 2.0 UG/ML (10.0-30.0)
[2017-08-07] MEDS ORDERED: HALOPERIDOL 5 MG TAB PO (18:45)
[2017-08-07] MEDS ORDERED: ACETAMINOPHEN TAB 650MG DOSE (2X325MG) PO (18:45)
[2017-08-07] MEDS ORDERED: MOM 30ML SUSPENSION UDC PO (18:45)
[2017-08-07] MEDS: QUEtiapine FUMARATE 100 MG TAB PO (21:12)
[2017-08-08] MEDS: PALIPERIDONE 3 MG ER TAB (INVEGA) PO ×2 (08:56→20:33)
[2017-08-08] MEDS: DOCUSATE SODIUM 100 MG CAP PO (09:22)
[2017-08-08 10:38] LABS: ESTIMATED AVERAGE GLUCOSE 105 MG/DL (60-110); HEMOGLOBIN A1c 5.3 %
[2017-08-08] MEDS: SIMVASTATIN 20 MG TAB PO (20:33)
[2017-08-08] MEDS: QUEtiapine FUMARATE 100 MG TAB PO (20:33)
[2017-08-09] MEDS: DOCUSATE SODIUM 100 MG CAP PO (08:21)
[2017-08-09] MEDS: PALIPERIDONE 3 MG ER TAB (INVEGA) PO ×2 (08:21→20:54)
[2017-08-09] MEDS: risperiDONE 2 MG TAB PO ×2 (09:36→20:54)
[2017-08-09] MEDS: SIMVASTATIN 20 MG TAB PO (20:54)
[2017-08-10] MEDS: PALIPERIDONE 3 MG ER TAB (INVEGA) PO ×2 (08:13→20:06)
[2017-08-10] MEDS: risperiDONE 2 MG TAB PO ×2 (08:13→20:06)
[2017-08-10] MEDS: DOCUSATE SODIUM 100 MG CAP PO (08:13)
[2017-08-10] MEDS: SIMVASTATIN 20 MG TAB PO (20:06)
[2017-08-11] MEDS: DOCUSATE SODIUM 100 MG CAP PO (08:29)
[2017-08-11] MEDS: PALIPERIDONE 3 MG ER TAB (INVEGA) PO ×2 (08:29→20:20)
[2017-08-11] MEDS: risperiDONE 2 MG TAB PO ×2 (08:29→20:20)
[2017-08-11] MEDS: SIMVASTATIN 20 MG TAB PO (20:20)
[2017-08-12] MEDS: DOCUSATE SODIUM 100 MG CAP PO (08:48)
[2017-08-12] MEDS: PALIPERIDONE 3 MG ER TAB (INVEGA) PO (08:48)
[2017-08-12] MEDS: risperiDONE 2 MG TAB PO ×2 (08:48→20:24)
[2017-08-12] MEDS ORDERED: BENZTROPINE 1 MG TAB PO (10:30)
[2017-08-12] MEDS: risperiDONE LONG-ACTING 37.5 MG/2 ML INJ (J2794) IM (13:59)
[2017-08-12] MEDS: QUEtiapine FUMARATE 100 MG TAB PO (20:24)
[2017-08-12] MEDS: SIMVASTATIN 20 MG TAB PO (20:24)
[2017-08-13] MEDS: DOCUSATE SODIUM 100 MG CAP PO (08:01)
[2017-08-13] MEDS: risperiDONE 2 MG TAB PO ×2 (08:01→20:20)
[2017-08-13] MEDS: QUEtiapine FUMARATE 100 MG TAB PO (20:20)
[2017-08-13] MEDS: SIMVASTATIN 20 MG TAB PO (20:20)
[2017-08-14] MEDS: risperiDONE 2 MG TAB PO ×2 (08:32→20:54)
[2017-08-14] MEDS: DOCUSATE SODIUM 100 MG CAP PO (08:32)
[2017-08-14] MEDS: SIMVASTATIN 20 MG TAB PO (20:55)
[2017-08-14] MEDS: QUEtiapine FUMARATE 100 MG TAB PO (20:55)
[2017-08-15] MEDS: risperiDONE 2 MG TAB PO ×2 (08:11→20:25)
[2017-08-15] MEDS: DOCUSATE SODIUM 100 MG CAP PO (08:11)
[2017-08-15] MEDS: QUEtiapine FUMARATE 100 MG TAB PO (20:25)
[2017-08-15] MEDS: SIMVASTATIN 20 MG TAB PO (20:25)
[2017-08-16] MEDS: DOCUSATE SODIUM 100 MG CAP PO (09:39)
[2017-08-16] MEDS: risperiDONE 2 MG TAB PO ×2 (09:39→20:56)
[2017-08-16] MEDS: SIMVASTATIN 20 MG TAB PO (20:56)
[2017-08-16] MEDS: QUEtiapine FUMARATE 100 MG TAB PO (20:56)
[2017-08-17] MEDS: risperiDONE 2 MG TAB PO ×2 (08:35→21:05)
[2017-08-17] MEDS: DOCUSATE SODIUM 100 MG CAP PO (08:35)
[2017-08-17] MEDS: SIMVASTATIN 20 MG TAB PO (21:05)
[2017-08-18] MEDS: DOCUSATE SODIUM 100 MG CAP PO (08:44)
[2017-08-18] MEDS: risperiDONE 2 MG TAB PO ×2 (08:44→20:15)
[2017-08-18] MEDS: SIMVASTATIN 20 MG TAB PO (20:15)
[2017-08-18] MEDS: QUEtiapine FUMARATE 100 MG TAB PO (20:15)
[2017-08-19] MEDS: risperiDONE 2 MG TAB PO ×2 (08:17→21:05)
[2017-08-19] MEDS: SIMVASTATIN 20 MG TAB PO (21:06)
[2017-08-20] MEDS: risperiDONE 2 MG TAB PO ×2 (08:18→21:30)
[2017-08-20] MEDS: LACTOBACILLUS ACIDOPHILUS CAP (BACID) PO ×2 (09:37→21:30)
[2017-08-20] MEDS: SIMVASTATIN 20 MG TAB PO (21:30)
[2017-08-20] MEDS: QUEtiapine FUMARATE 100 MG TAB PO (21:30)
[2017-08-21] MEDS: risperiDONE 2 MG TAB PO ×2 (08:22→20:12)
[2017-08-21] MEDS: LACTOBACILLUS ACIDOPHILUS CAP (BACID) PO ×2 (08:22→20:12)
[2017-08-21] MEDS: SIMVASTATIN 20 MG TAB PO (20:12)
[2017-08-22] MEDS: LACTOBACILLUS ACIDOPHILUS CAP (BACID) PO ×2 (08:42→20:47)
[2017-08-22] MEDS: risperiDONE 2 MG TAB PO ×2 (08:42→20:47)
[2017-08-22] MEDS: SIMVASTATIN 20 MG TAB PO (20:46)
[2017-08-23] MEDS: risperiDONE 2 MG TAB PO ×2 (09:11→20:16)
[2017-08-23] MEDS: LACTOBACILLUS ACIDOPHILUS CAP (BACID) PO ×2 (09:11→20:16)
[2017-08-23] MEDS: SIMVASTATIN 20 MG TAB PO (20:16)
[2017-08-23] MEDS: QUEtiapine FUMARATE 100 MG TAB PO (20:16)
[2017-08-23 22:34] LABS: CK-MB VALUE MASS 1.7 NG/ML (0.0-3.6); CPK CREATINE PHOSPHOKINASE 236 U/L (39-308); MB/CK RELATIVE INDEX 0.72 (< OR =4); TROPONIN I < 0.02 NG/ML (< 0.10)
[2017-08-24] MEDS: risperiDONE 2 MG TAB PO ×2 (08:12→20:14)
[2017-08-24] MEDS: LACTOBACILLUS ACIDOPHILUS CAP (BACID) PO ×2 (08:12→20:14)
[2017-08-24] MEDS: SIMVASTATIN 20 MG TAB PO (20:14)
[2017-08-24] MEDS: QUEtiapine FUMARATE 100 MG TAB PO (20:14)
[2017-08-25] MEDS: LACTOBACILLUS ACIDOPHILUS CAP (BACID) PO ×2 (08:31→21:13)
[2017-08-25] MEDS: risperiDONE 2 MG TAB PO ×2 (08:31→21:13)
[2017-08-25] MEDS: MAALOX 30 ML SUSP *UDC PO (08:48)
[2017-08-25] MEDS: PANTOPRAZOLE 20 MG TAB PO (11:02)
[2017-08-25] MEDS: SIMVASTATIN 20 MG TAB PO (21:13)
[2017-08-26] MEDS: PANTOPRAZOLE 20 MG TAB PO (08:12)
[2017-08-26] MEDS: risperiDONE 2 MG TAB PO ×2 (08:12→20:46)
[2017-08-26] MEDS: LACTOBACILLUS ACIDOPHILUS CAP (BACID) PO ×2 (08:12→20:46)
[2017-08-26] MEDS: risperiDONE LONG-ACTING 37.5 MG/2 ML INJ (J2794) IM (08:13)
[2017-08-26] MEDS: SIMVASTATIN 20 MG TAB PO (20:46)
[2017-08-27] MEDS: LACTOBACILLUS ACIDOPHILUS CAP (BACID) PO ×2 (08:43→20:14)
[2017-08-27] MEDS: PANTOPRAZOLE 20 MG TAB PO (08:43)
[2017-08-27] MEDS: risperiDONE 2 MG TAB PO ×2 (08:43→20:14)
[2017-08-27] MEDS: traZODone 100 MG TAB PO (20:14)
[2017-08-27] MEDS: SIMVASTATIN 20 MG TAB PO (20:14)
[2017-08-27] MEDS: diphenhydrAMINE 50 MG CAP PO (20:14)
[2017-08-28] MEDS: LACTOBACILLUS ACIDOPHILUS CAP (BACID) PO ×2 (09:44→20:09)
[2017-08-28] MEDS: PANTOPRAZOLE 20 MG TAB PO (09:44)
[2017-08-28] MEDS: risperiDONE 2 MG TAB PO ×2 (09:44→20:10)
[2017-08-28] MEDS: SIMVASTATIN 20 MG TAB PO (20:10)
[2017-08-28] MEDS: traZODone 100 MG TAB PO (20:10)
[2017-08-29] MEDS: LACTOBACILLUS ACIDOPHILUS CAP (BACID) PO ×2 (09:51→20:52)
[2017-08-29] MEDS: PANTOPRAZOLE 20 MG TAB PO (09:51)
[2017-08-29] MEDS: risperiDONE 2 MG TAB PO ×2 (09:51→20:52)
[2017-08-29] MEDS: SIMVASTATIN 20 MG TAB PO (20:52)
[2017-08-29] MEDS: traZODone 100 MG TAB PO (20:52)
[2017-08-30] MEDS: PANTOPRAZOLE 20 MG TAB PO (08:04)
[2017-08-30] MEDS: LACTOBACILLUS ACIDOPHILUS CAP (BACID) PO ×2 (08:04→20:55)
[2017-08-30] MEDS: risperiDONE 2 MG TAB PO ×2 (08:04→20:55)
[2017-08-30] MEDS: SIMVASTATIN 20 MG TAB PO (20:55)
[2017-08-31] MEDS: LACTOBACILLUS ACIDOPHILUS CAP (BACID) PO ×2 (08:12→21:38)
[2017-08-31] MEDS: PANTOPRAZOLE 20 MG TAB PO (08:12)
[2017-08-31] MEDS: risperiDONE 2 MG TAB PO ×2 (08:12→21:38)
[2017-08-31] MEDS: SIMVASTATIN 20 MG TAB PO (21:38)
[2017-09-01] MEDS: PANTOPRAZOLE 20 MG TAB PO (08:36)
[2017-09-01] MEDS: risperiDONE 2 MG TAB PO ×2 (08:36→20:10)
[2017-09-01] MEDS: LACTOBACILLUS ACIDOPHILUS CAP (BACID) PO ×2 (08:36→20:10)
[2017-09-01] MEDS: traZODone 100 MG TAB PO (20:10)
[2017-09-01] MEDS: diphenhydrAMINE 50 MG CAP PO (20:10)
[2017-09-01] MEDS: SIMVASTATIN 20 MG TAB PO (20:10)
[2017-09-02] MEDS: risperiDONE 2 MG TAB PO (08:21)
[2017-09-02] MEDS: LACTOBACILLUS ACIDOPHILUS CAP (BACID) PO (08:21)
[2017-09-02] MEDS: PANTOPRAZOLE 20 MG TAB PO (08:21)
== END 2017-09-02 11:20 | disposition home or self-care (01) | DRG 885 ==
LOC: M ED 15:40 → M ED INP 18:34 → M PSY 20:08
DX: F20.9 Schizophrenia, unspecified (principal); Z91.19 Patient's noncompliance with other medical treatment and regimen; E78.5 Hyperlipidemia, unspecified; K59.00 Constipation, unspecified; E66.9 Obesity, unspecified; Z68.32 Body mass index [BMI] 32.0-32.9, adult; Z79.899 Other long term (current) drug therapy; Z88.8 Allergy status to other drugs, medicaments and biological substances

== ENCOUNTER 2017-10-30 16:57 | Inpatient (IN) | payer MEDICARE, MEDICAID ==
[2017-10-30 17:43] LABS: HEMATOCRIT 41.7 % (42.0-52.0); HEMOGLOBIN 13.7 g/dl (13.5-17.5); MEAN CORPUSCULAR HEMOGLOBIN 30.7 pg (27.0-33.0); MEAN CORPUSCULAR HGB CONC 32.9 g/dl (32.0-36.5); MEAN CORPUSCULAR VOLUME 93.5 fl (80.0-96.0); PLATELET COUNT, AUTOMATED 180 10^3/uL (150-450); RED BLOOD COUNT 4.46 10^6/uL (4.30-6.10); RED CELL DISTRIBUTION WIDTH 12.5 % (11.5-14.5); WHITE BLOOD COUNT 7.1 10^3/uL (4.0-10.0)
[2017-10-30 18:02] LABS: ACETAMINOPHEN LEVEL < 2.0 UG/ML (10.0-30.0); ALBUMIN 3.7 GM/DL (3.2-5.2); ALBUMIN/GLOBULIN RATIO 1.16 (1.00-1.93); ALKALINE PHOSPHATASE 75 U/L (45-117); ALT/SGPT 25 U/L (12-78); ANION GAP 8 MEQ/L (8-16); AST/SGOT 22 U/L (7-37); BILIRUBIN,DIRECT < 0.1 MG/DL (0.0-0.2); BILIRUBIN,TOTAL 0.2 MG/DL (0.2-1.0); BLOOD UREA NITROGEN 19 MG/DL (7-18); CALCIUM LEVEL 8.4 MG/DL (8.5-10.1); CARBON DIOXIDE LEVEL 25 MEQ/L (21-32); CHLORIDE LEVEL 110 MEQ/L (98-107); CREATININE FOR GFR 1.24 MG/DL (0.70-1.30); ETHYL ALCOHOL (ETHANOL) 0.004 % (0.000-0.010); GLOMERULAR FILTRATION RATE > 60.0 (>60); GLUCOSE, FASTING 195 MG/DL (70-100); POTASSIUM SERUM 3.8 MEQ/L (3.5-5.1); SALICYLATE LEVEL 4.6 MG/DL (5.0-30.0); SODIUM LEVEL 143 MEQ/L (136-145); THYROID STIMULATING HORMONE 0.655 uIU/ML (0.358-3.740); TOTAL PROTEIN 6.9 GM/DL (6.4-8.2)
[2017-10-30 18:04] LABS: AMPHETAMINES LEVEL URINE NEGATIVE (NEGATIVE); BARBITURATES URINE NEGATIVE (NEGATIVE); BENZODIAZEPINES URINE NEGATIVE (NEGATIVE); CANNABINOIDS URINE NEGATIVE (NEGATIVE); COCAINE METABOLITE URINE NEGATIVE (NEGATIVE); METHADONE URINE NEGATIVE (NEGATIVE); OPIATES URINE NEGATIVE (NEGATIVE); PHENCYCLIDINE URINE NEGATIVE (NEGATIVE)
[2017-10-30] MEDS ORDERED: ACETAMINOPHEN TAB 650MG DOSE (2X325MG) PO (19:15)
[2017-10-30] MEDS ORDERED: MAALOX 30 ML SUSP *UDC PO (19:15)
[2017-10-30] MEDS ORDERED: LORazepam 1 MG TAB PO (19:15)
[2017-10-30] MEDS ORDERED: traZODone 50 MG TAB PO (19:15)
[2017-10-30] MEDS ORDERED: diphenhydrAMINE 25 MG CAP PO (19:15)
[2017-10-30] MEDS ORDERED: HALOPERIDOL 5 MG TAB PO (19:15)
[2017-10-30] MEDS ORDERED: MOM 30ML SUSPENSION UDC PO (19:15)
[2017-10-31] MEDS: PALIPERIDONE 6 MG ER TAB (INVEGA) PO ×2 (11:55→21:08)
[2017-10-31] MEDS: BENZTROPINE 1 MG TAB PO ×2 (11:55→21:09)
[2017-10-31] MEDS: METOPROLOL TART 25 MG TABLET PO ×2 (11:56→21:09)
[2017-10-31] MEDS: traZODone 100 MG TAB PO (21:08)
[2017-10-31] MEDS: SIMVASTATIN 20 MG TAB PO (21:08)
[2017-11-01] MEDS: METOPROLOL TART 25 MG TABLET PO ×2 (09:12→21:10)
[2017-11-01] MEDS: BENZTROPINE 1 MG TAB PO ×2 (09:12→21:10)
[2017-11-01] MEDS: PALIPERIDONE 6 MG ER TAB (INVEGA) PO ×2 (09:13→21:09)
[2017-11-01] MEDS: traZODone 100 MG TAB PO (21:10)
[2017-11-01] MEDS: SIMVASTATIN 20 MG TAB PO (21:10)
[2017-11-02] MEDS: PALIPERIDONE 6 MG ER TAB (INVEGA) PO ×2 (08:32→20:50)
[2017-11-02] MEDS: BENZTROPINE 1 MG TAB PO ×2 (08:32→20:50)
[2017-11-02] MEDS: METOPROLOL TART 25 MG TABLET PO ×2 (08:32→20:51)
[2017-11-02] MEDS: traZODone 100 MG TAB PO (20:50)
[2017-11-02] MEDS: SIMVASTATIN 20 MG TAB PO (20:50)
[2017-11-03] MEDS: BENZTROPINE 1 MG TAB PO ×2 (08:17→21:03)
[2017-11-03] MEDS: PALIPERIDONE 6 MG ER TAB (INVEGA) PO ×2 (08:18→21:03)
[2017-11-03] MEDS: METOPROLOL TART 25 MG TABLET PO ×2 (08:18→21:06)
[2017-11-03] MEDS: traZODone 100 MG TAB PO (21:02)
[2017-11-03] MEDS: SIMVASTATIN 20 MG TAB PO (21:02)
[2017-11-04] MEDS: BENZTROPINE 1 MG TAB PO ×2 (08:09→21:02)
[2017-11-04] MEDS: PALIPERIDONE 6 MG ER TAB (INVEGA) PO ×2 (08:09→21:02)
[2017-11-04] MEDS: METOPROLOL TART 25 MG TABLET PO ×2 (08:10→21:02)
[2017-11-04] MEDS: PALIPERIDONE PALMITATE 234 MG/1.5 ML INJ (INVEGA SUSTENNA)(J2426) IM (11:34)
[2017-11-04] MEDS: SIMVASTATIN 20 MG TAB PO (21:02)
[2017-11-04] MEDS: traZODone 100 MG TAB PO (21:02)
[2017-11-05] MEDS: METOPROLOL TART 25 MG TABLET PO (07:48)
[2017-11-05] MEDS: PALIPERIDONE 6 MG ER TAB (INVEGA) PO (07:48)
[2017-11-05] MEDS: BENZTROPINE 1 MG TAB PO (07:48)
== END 2017-11-05 14:10 | disposition home or self-care (01) | DRG 885 ==
LOC: M PSY 11-03 09:38 → M ED 16:57 → M ED INP 19:02 → M PSY 23:25
DX: F25.9 Schizoaffective disorder, unspecified (principal); Z79.899 Other long term (current) drug therapy; Z88.8 Allergy status to other drugs, medicaments and biological substances; E78.5 Hyperlipidemia, unspecified; I10 Essential (primary) hypertension; K59.00 Constipation, unspecified; F41.9 Anxiety disorder, unspecified; E66.9 Obesity, unspecified; Z68.33 Body mass index [BMI] 33.0-33.9, adult

== ENCOUNTER → 2018-09-08 | Outpatient (REF) | payer MEDICARE, MEDICAID ==
[~2018-09-08] MED LIST: BENZ-52 PO; CLOZ100T2 PO; DIPH25CA PO; GEOD20CA14 PO; GEOD40CA13 PO; INVE234I IM; LOVA20TA2 PO; MAPA325T3 PO; METO1TAB87 PO; MILK120011 PO; MYLASSUD PO; NICO21PAT TD; PALI1TAB3 PO; RISP2TAB3 PO; RISP2TAB32 PO; RISP37INJ IM; SIMV20TA2 PO; STOO100C PO; TRAZ-163 PO; TRAZ10TA PO; TRAZO50TA PO; VITA50005 PO
[2018-09-08 19:24] LABS: BASO % 0.4 % (0.0-1.0); EOS # 0.2 10^3/uL (0.0-0.50); EOS % 2.7 % (0.0-3.0); HEMATOCRIT 44.4 % (42.0-52.0); HEMOGLOBIN 14.8 g/dl (13.5-17.5); LYMPH # 2.2 10^3/uL (1.5-4.5); LYMPH % 27.3 % (24.0-44.0); MEAN CORPUSCULAR HEMOGLOBIN 31.3 pg (27.0-33.0); MEAN CORPUSCULAR HGB CONC 33.3 g/dl (32.0-36.5); MEAN CORPUSCULAR VOLUME 93.9 fl (80.0-96.0); MONO # 0.5 10^3/uL (0.0-0.8); MONO % 6.6 % (0.0-5.0); NEUTROPHILS # 5.1 10^3/uL (1.8-7.7); NEUTROPHILS % 62.8 % (36.0-66.0); PLATELET COUNT, AUTOMATED 231 10^3/uL (150-450); RED BLOOD COUNT 4.73 10^6/uL (4.30-6.10); WHITE BLOOD COUNT 8.2 10^3/uL (4.0-10.0)
[2018-09-08 19:37] LABS: HEMOGLOBIN A1c 5.5 %
[2018-09-08 19:50] LABS: ALBUMIN 3.9 GM/DL (3.2-5.2); ALT/SGPT 32 U/L (12-78); BILIRUBIN,TOTAL 0.3 MG/DL (0.2-1.0); BLOOD UREA NITROGEN 19 MG/DL (7-18); CALCIUM LEVEL 8.5 MG/DL (8.5-10.1); CARBON DIOXIDE LEVEL 27 MEQ/L (21-32); CHLORIDE LEVEL 107 MEQ/L (98-107); CHOLESTEROL LEVEL 182 MG/DL (<200); CHOLESTEROL RISK RATIO 4.789 (<5); CREATININE FOR GFR 1.19 MG/DL (0.70-1.30); GLOMERULAR FILTRATION RATE > 60.0 (>60); GLUCOSE, FASTING 89 MG/DL (70-100); HDL CHOLESTEROL 38 MG/DL (>40); LDL CHOLESTEROL 83 MG/DL (<100); NON-HDL-C 144 MG/DL; POTASSIUM SERUM 4.3 MEQ/L (3.5-5.1); SODIUM LEVEL 140 MEQ/L (136-145); THYROID STIMULATING HORMONE 0.863 uIU/ML (0.358-3.740); TOTAL 25(OH) VITAMIN D 41.9 NG/ML (30.0-100.0); TOTAL PROTEIN 7.4 GM/DL (6.4-8.2); TRIGLYCERIDES LEVEL 305 MG/DL (<150)
== END ==
LOC: M LAB REF 18:40
PROVIDERS: ATTEND Nurse Practitioner Family
DX: Z13.9 Encounter for screening, unspecified (principal); I10 Essential (primary) hypertension; E78.5 Hyperlipidemia, unspecified

== ENCOUNTER → 2018-12-17 | Outpatient (REF) | payer MEDICARE, MEDICAID ==
[~2018-12-17] MED LIST changes: +MM S100C PO; -STOO100C PO; +TRAZ1TAB10 PO; -TRAZO50TA PO
== END ==
LOC: M LAB REF 08:49
PROVIDERS: ATTEND Nurse Practitioner Family
DX: R21 Rash and other nonspecific skin eruption (principal)

== ENCOUNTER → 2018-12-30 | Outpatient (REF) | payer MEDICARE, MEDICAID ==
[2018-12-30 16:01] LABS: BASO % 0.4 % (0.0-1.0); EOS # 0.2 10^3/uL (0.0-0.50); EOS % 2.6 % (0.0-3.0); HEMATOCRIT 46.8 % (42.0-52.0); HEMOGLOBIN 15.5 g/dl (13.5-17.5); LYMPH # 1.5 10^3/uL (1.5-4.5); MEAN CORPUSCULAR HEMOGLOBIN 31.4 pg (27.0-33.0); MEAN CORPUSCULAR HGB CONC 33.1 g/dl (32.0-36.5); MEAN CORPUSCULAR VOLUME 94.9 fl (80.0-96.0); MONO # 0.7 10^3/uL (0.0-0.8); MONO % 9.4 % (0.0-5.0); NEUTROPHILS # 4.5 10^3/uL (1.8-7.7); NEUTROPHILS % 65.2 % (36.0-66.0); PLATELET COUNT, AUTOMATED 205 10^3/uL (150-450); RED BLOOD COUNT 4.93 10^6/uL (4.30-6.10); WHITE BLOOD COUNT 6.9 10^3/uL (4.0-10.0)
[2018-12-30 16:08] LABS: ALBUMIN 4.1 GM/DL (3.2-5.2); ALT/SGPT 43 U/L (12-78); BILIRUBIN,TOTAL 0.5 MG/DL (0.2-1.0); BLOOD UREA NITROGEN 18 MG/DL (7-18); CALCIUM LEVEL 9.1 MG/DL (8.5-10.1); CARBON DIOXIDE LEVEL 24 MEQ/L (21-32); CHLORIDE LEVEL 107 MEQ/L (98-107); CREATININE FOR GFR 1.13 MG/DL (0.70-1.30); GLOMERULAR FILTRATION RATE > 60.0 (>60); GLUCOSE, FASTING 93 MG/DL (70-100); POTASSIUM SERUM 4.5 MEQ/L (3.5-5.1); SODIUM LEVEL 139 MEQ/L (136-145); TOTAL PROTEIN 7.8 GM/DL (6.4-8.2)
== END ==
LOC: M LAB REF 15:17
PROVIDERS: ATTEND Nurse Practitioner Family
DX: Z13.9 Encounter for screening, unspecified (principal); Z79.899 Other long term (current) drug therapy

== ENCOUNTER → 2020-02-10 | Outpatient (CLI) | payer MEDICARE, MEDICAID ==
[~2020-02-10] MED LIST changes: +ACET325T42 PO; -DIPH25CA PO; +DIPH25CA32 PO; -MAPA325T3 PO; -SIMV20TA2 PO; +SIMV20TA22 PO; -TRAZ-163 PO; +TRAZ-257 PO; -TRAZ10TA PO; +TRAZ1TAB12 PO; +med rec comment
[2020-02-10 19:36] LABS: BASO % 0.2 % (0.0-1.0); EOS # 0.1 10^3/uL (0.0-0.5); EOS % 1.2 % (0.0-3.0); HEMATOCRIT 40.7 % (42.0-52.0); HEMOGLOBIN 13.7 g/dl (13.5-17.5); LYMPH # 2.5 10^3/uL (1.5-5.0); LYMPH % 24.2 % (24.0-44.0); MEAN CORPUSCULAR HEMOGLOBIN 32.1 pg (27.0-33.0); MEAN CORPUSCULAR HGB CONC 33.7 g/dl (32.0-36.5); MEAN CORPUSCULAR VOLUME 95.3 fl (80.0-96.0); MONO # 0.7 10^3/uL (0.0-0.8); MONO % 6.9 % (0.0-5.0); NEUTROPHILS # 6.8 10^3/uL (1.5-8.5); NEUTROPHILS % 67.1 % (36.0-66.0); PLATELET COUNT, AUTOMATED 201 10^3/uL (150-450); RED BLOOD COUNT 4.27 10^6/uL (4.30-6.10); WHITE BLOOD COUNT 10.2 10^3/uL (4.0-10.0)
[2020-02-10 19:47] LABS: ALBUMIN 3.9 GM/DL (3.2-5.2); ALT/SGPT 24 U/L (12-78); BILIRUBIN,TOTAL 0.5 MG/DL (0.2-1.0); BLOOD UREA NITROGEN 23 MG/DL (7-18); CALCIUM LEVEL 8.7 MG/DL (8.5-10.1); CARBON DIOXIDE LEVEL 26 MEQ/L (21-32); CHLORIDE LEVEL 106 MEQ/L (98-107); CHOLESTEROL LEVEL 192 MG/DL (<200); CHOLESTEROL RISK RATIO 4.923 (<5); CREATININE FOR GFR 1.05 MG/DL (0.70-1.30); FREE THYROXINE INDEX 3.2 % (1.4-3.8); GLOMERULAR FILTRATION RATE > 60.0 (>60); GLUCOSE, FASTING 99 MG/DL (70-100); HDL CHOLESTEROL 39 MG/DL (>40); LDL CHOLESTEROL 132 MG/DL (<100); NON-HDL-C 153 MG/DL; POTASSIUM SERUM 3.7 MEQ/L (3.5-5.1); SODIUM LEVEL 138 MEQ/L (136-145); T UPTAKE 34 % (33-40); THYROXINE (T4) 9.5 UG/DL (4.5-12.0); TOTAL PROTEIN 7.7 GM/DL (6.4-8.2); TRIGLYCERIDES LEVEL 105 MG/DL (<150)
[2020-02-10 19:49] LABS: TOTAL 25(OH) VITAMIN D 26.4 NG/ML (30.0-100.0)
[2020-02-10 19:51] LABS: HEMOGLOBIN A1c 5.4 %
== END ==
LOC: M WUC 15:38
PROVIDERS: ATTEND Nurse Practitioner Psychiatric/Mental Health
DX: F20.9 Schizophrenia, unspecified (principal)

== ENCOUNTER 2020-03-03 13:34 | Emergency (ER) | payer MEDICARE, MEDICAID ==
[~2020-03-03] VITALS: Ht 180.3 cm; Wt 125.0 kg
[~2020-03-03 13:34] MED LIST changes: -med rec comment
[2020-03-03 14:37] LABS: HEMATOCRIT 47.7 % (42.0-52.0); HEMOGLOBIN 15.7 g/dl (13.5-17.5); MEAN CORPUSCULAR HEMOGLOBIN 31.2 pg (27.0-33.0); MEAN CORPUSCULAR HGB CONC 32.9 g/dl (32.0-36.5); MEAN CORPUSCULAR VOLUME 94.8 fl (80.0-96.0); PLATELET COUNT, AUTOMATED 252 10^3/uL (150-450); RED BLOOD COUNT 5.03 10^6/uL (4.30-6.10); WHITE BLOOD COUNT 9.1 10^3/uL (4.0-10.0)
[2020-03-03 15:17] LABS: ACETAMINOPHEN LEVEL < 2.0 UG/ML (10.0-30.0); ALT/SGPT 25 U/L (12-78); BILIRUBIN,DIRECT 0.1 MG/DL (0.0-0.2); BILIRUBIN,TOTAL 0.5 MG/DL (0.2-1.0); BLOOD UREA NITROGEN 19 MG/DL (7-18); CALCIUM LEVEL 9.3 MG/DL (8.5-10.1); CARBON DIOXIDE LEVEL 23 MEQ/L (21-32); CHLORIDE LEVEL 109 MEQ/L (98-107); CREATININE FOR GFR 1.03 MG/DL (0.70-1.30); ETHYL ALCOHOL (ETHANOL) < 0.003 % (0.000-0.010); GLOMERULAR FILTRATION RATE > 60.0 (>60); GLUCOSE, FASTING 129 MG/DL (70-100); POTASSIUM SERUM 3.9 MEQ/L (3.5-5.1); SALICYLATE LEVEL 3.1 MG/DL (5.0-30.0); SODIUM LEVEL 141 MEQ/L (136-145); THYROID STIMULATING HORMONE 0.861 uIU/ML (0.358-3.740); TOTAL PROTEIN 7.9 GM/DL (6.4-8.2)
[2020-03-03 19:40] LABS: AMPHETAMINES LEVEL URINE NEGATIVE (NEGATIVE); BARBITURATES URINE NEGATIVE (NEGATIVE); BENZODIAZEPINES URINE NEGATIVE (NEGATIVE); CANNABINOIDS URINE NEGATIVE (NEGATIVE); COCAINE METABOLITE URINE NEGATIVE (NEGATIVE); METHADONE URINE NEGATIVE (NEGATIVE); OPIATES URINE NEGATIVE (NEGATIVE); PHENCYCLIDINE URINE NEGATIVE (NEGATIVE)
[2020-03-04] MEDS ORDERED: INVE234I IM (00:45)
[2020-03-04] MEDS ORDERED: med rec comment (01:51)
[2020-03-04 04:09] VITALS: BP 140/91
--- NOTE | 2020-03-05 11:48 | ECGEPIP ---
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
== END 2020-03-04 04:14 ==
LOC: M ED 13:34
DX: F20.0 Paranoid schizophrenia (principal); F17.200 Nicotine dependence, unspecified, uncomplicated; Z79.899 Other long term (current) drug therapy; Z88.8 Allergy status to other drugs, medicaments and biological substances
CPT/HCPCS: 80048; 80076; 80307; 84443; 85027; 93005; 99284; G0480; U0002

== ENCOUNTER 2020-11-29 13:09 | Emergency (ER) | payer MEDICARE, MEDICAID ==
[~2020-11-29] VITALS: Ht 180.3 cm; Wt 125.0 kg
[~2020-11-29 13:09] MED LIST changes: +RISP-9 PO; -RISP2TAB3 PO; +med rec comment
[2020-11-29] MEDS ORDERED: TRAZ-252 (13:25)
[2020-11-29] MEDS ORDERED: OLAN20TA14 (13:25)
--- NOTE | 2020-11-29 16:06 | REP ---
INDICATION: R hip pain. COMPARISON: AP pelvis of 03/07/2006 TECHNIQUE: AP pelvis two views of the right hip FINDINGS: There is no significant change in appearance of the pelvis. There is no significant change in appearance of the hip joints on the AP pelvis. Two views of the right hip show hip joint space to be symmetric and relatively well maintained. IMPRESSION: Within normal limits. <Electronically signed by Jesus Gibbs > 11/29/20 [id number]
[2020-11-29 16:49] VITALS: BP 132/68
[2020-11-29 17:12] LABS: BASO % 0.2 % (0.0-1.0); EOS % 0.2 % (0.0-3.0); HEMATOCRIT 46.1 % (42.0-52.0); LYMPH # 1.8 10^3/uL (1.5-5.0); LYMPH % 15.3 % (24.0-44.0); MEAN CORPUSCULAR HEMOGLOBIN 31.3 pg (27.0-33.0); MEAN CORPUSCULAR HGB CONC 32.5 g/dl (32.0-36.5); MONO # 0.8 10^3/uL (0.0-0.8); NEUTROPHILS # 9.1 10^3/uL (1.5-8.5); PLATELET COUNT, AUTOMATED 202 10^3/uL (150-450); WHITE BLOOD COUNT 11.8 10^3/uL (4.0-10.0)
[2020-11-29 17:35] LABS: BLOOD UREA NITROGEN 18 MG/DL (7-18); CALCIUM LEVEL 9.1 MG/DL (8.5-10.1); CARBON DIOXIDE LEVEL 24 MEQ/L (21-32); CHLORIDE LEVEL 108 MEQ/L (98-107); CREATININE FOR GFR 0.95 MG/DL (0.70-1.30); GLOMERULAR FILTRATION RATE > 60.0 (>60); GLUCOSE, FASTING 92 MG/DL (70-100); POTASSIUM SERUM 4.1 MEQ/L (3.5-5.1); SODIUM LEVEL 140 MEQ/L (136-145)
[2020-11-29 18:18] LABS: ERYTHROCYTE SEDIMENTATION RATE 35 mm/hr (0-15)
[2020-11-29] MEDS ORDERED: ACETAMINOPHEN 500 MG TAB PO ONE (18:40)
[2020-12-01 18:08] LABS: Lyme Disease IgG/IgM Antibodie <0.91 ISR (0.00-0.90); Lyme Disease IgM Ab Quantitati <0.80 index (0.00-0.79)
== END 2020-11-29 19:15 | disposition home or self-care (01) ==
LOC: M ED 13:09
DX: S76.011A Strain of muscle, fascia and tendon of right hip, initial encounter (principal); F42.4 Excoriation (skin-picking) disorder; X58.XXXA Exposure to other specified factors, initial encounter; Y92.9 Unspecified place or not applicable; Y93.9 Activity, unspecified; Y99.9 Unspecified external cause status; E78.5 Hyperlipidemia, unspecified; J44.9 Chronic obstructive pulmonary disease, unspecified; F20.0 Paranoid schizophrenia; F17.200 Nicotine dependence, unspecified, uncomplicated; E66.9 Obesity, unspecified; Z79.899 Other long term (current) drug therapy; Z88.8 Allergy status to other drugs, medicaments and biological substances

== ENCOUNTER 2022-09-29 06:58 | Inpatient (IN) | payer MEDICARE, MEDICAID ==
[~2022-09-29] VITALS: Ht 180.3 cm; Wt 120.5 kg
[~2022-09-29 06:58] MED LIST changes: -BENZ-52 PO; +BENZ1TAB5 PO; -CLOZ100T2 PO; +CLOZ100T5 PO; +DIPH-435 PO; -DIPH25CA32 PO; +OLAN20TA14; +TRAZ-252
[2022-09-29 07:57] LABS: HEMATOCRIT 50.9 % (42.0-52.0); HEMOGLOBIN 16.8 g/dl (13.5-17.5); MEAN CORPUSCULAR HEMOGLOBIN 31.8 pg (27.0-33.0); MEAN CORPUSCULAR VOLUME 96.4 fl (80.0-96.0); PLATELET COUNT, AUTOMATED 247 10^3/uL (150-450); RED BLOOD COUNT 5.28 10^6/uL (4.30-6.10); WHITE BLOOD COUNT 10.9 10^3/uL (4.0-10.0)
[2022-09-29 08:18] LABS: AMPHETAMINES LEVEL URINE NEGATIVE (NEGATIVE); BARBITURATES URINE NEGATIVE (NEGATIVE); BENZODIAZEPINES URINE NEGATIVE (NEGATIVE); CANNABINOIDS URINE NEGATIVE (NEGATIVE); COCAINE METABOLITE URINE NEGATIVE (NEGATIVE); METHADONE URINE NEGATIVE (NEGATIVE); OPIATES URINE NEGATIVE (NEGATIVE); PHENCYCLIDINE URINE NEGATIVE (NEGATIVE)
[2022-09-29 08:21] LABS: ETHYL ALCOHOL (ETHANOL) < 0.003 % (0.000-0.010)
[2022-09-29 08:22] LABS: ACETAMINOPHEN LEVEL < 2.0 UG/ML (10.0-20.0)
[2022-09-29 08:23] LABS: ALBUMIN 4.4 G/DL (3.2-5.2); ALKALINE PHOSPHATASE 107 U/L (46-116); ALT/SGPT 33 U/L (7.0-40); AST/SGOT 21 U/L (<34); BILIRUBIN,DIRECT 0.3 MG/DL (<0.4); BILIRUBIN,TOTAL 0.8 MG/DL (0.3-1.2); BLOOD UREA NITROGEN 24 MG/DL (9-23); CALCIUM LEVEL 9.5 MG/DL (8.5-10.1); CARBON DIOXIDE LEVEL 19 MMOL/L (20-31); CHLORIDE LEVEL 106 MMOL/L (98-107); CREATININE FOR GFR 1.01 MG/DL (0.70-1.30); GLOMERULAR FILTRATION RATE > 60.0 (>60); GLUCOSE, FASTING 109 MG/DL (60-100); POTASSIUM SERUM 3.9 MMOL/L (3.5-5.1); SALICYLATE LEVEL < 3.0 MG/DL (<30); SODIUM LEVEL 139 MMOL/L (136-145); TOTAL PROTEIN 8.3 G/DL (5.7-8.2)
[2022-09-29 08:25] LABS: THYROID STIMULATING HORMONE 1.642 uIU/ML (0.55-4.78)
[2022-09-29] MEDS ORDERED: MOM 30ML SUSPENSION UDC PO PRN (13:40)
[2022-09-29] MEDS ORDERED: MAALOX 30 ML SUSP *UDC PO PRN (13:40)
[2022-09-29] MEDS ORDERED: ACETAMINOPHEN TAB 650MG DOSE (2X325MG) PO PRN (13:40)
[2022-09-29 14:52] VITALS: BP 124/65
[2022-09-30 06:49] VITALS: BP 124/66
[2022-09-30] MEDS: OLANZapine ORAL DISINTEGRATING TAB 5MG PO PRN (09:43)
[2022-09-30] MEDS ORDERED: HOME MED LIST COMPLETE! XX SCH (11:05)
[2022-09-30] MEDS ORDERED: SENOKOT S TAB PO PRN (12:05)
[2022-09-30 18:38] VITALS: BP 115/56
[2022-09-30] MEDS ORDERED: OLANZapine 5 MG TAB PO SCH (21:00)
[2022-09-30] MEDS: traZODone 50 MG TAB PO PRN (21:09)
[2022-10-01 05:56] VITALS: BP 128/59
[2022-10-01 08:03] LABS: CHOLESTEROL RISK RATIO 4.43 (<5); HDL CHOLESTEROL 36.5 MG/DL (>40); LDL CHOLESTEROL 103.7 MG/DL (<100); NON-HDL-C 125.5 MG/DL
[2022-10-01] MEDS: PALIPERIDONE 3MG ER TAB (INVEGA) PO SCH ×2 (11:50→21:14)
[2022-10-01 18:41] VITALS: BP 145/78
[2022-10-01] MEDS: traZODone 50 MG TAB PO PRN (21:13)
[2022-10-02 06:20] VITALS: BP 127/68
[2022-10-02] MEDS: PALIPERIDONE 3MG ER TAB (INVEGA) PO SCH ×2 (09:45→22:29)
[2022-10-02 18:52] VITALS: BP 135/70
[2022-10-02] MEDS: traZODone 50 MG TAB PO PRN (22:29)
[2022-10-03 06:38] VITALS: BP 148/68
[2022-10-03] MEDS ORDERED: traZODone 50 MG TAB PO PRN (08:55)
[2022-10-03] MEDS ORDERED: BENZTROPINE 1 MG TAB PO SCH (09:00)
[2022-10-03] MEDS: PALIPERIDONE 3MG ER TAB (INVEGA) PO SCH ×2 (10:46→21:47)
[2022-10-03 17:20] VITALS: BP 123/26
[2022-10-04 06:53] VITALS: BP 112/60
[2022-10-04] MEDS: PALIPERIDONE 3MG ER TAB (INVEGA) PO SCH ×2 (09:23→20:50)
[2022-10-04 15:48] VITALS: BP 117/64
[2022-10-05 07:01] VITALS: BP 104/53
[2022-10-05] MEDS: PALIPERIDONE 3MG ER TAB (INVEGA) PO SCH ×2 (07:57→20:47)
[2022-10-05] MEDS ORDERED: PALIPERIDONE PAL 234MG/1.5ML INJ (INVEGA)(FREE PSY INPT ONLY) IM ONE (12:00)
[2022-10-05 17:45] VITALS: BP 133/71
[2022-10-06 06:00] VITALS: BP 140/68
[2022-10-06] MEDS: PALIPERIDONE 3MG ER TAB (INVEGA) PO SCH ×2 (09:20→21:30)
[2022-10-06] MEDS: OLANZapine ORAL DISINTEGRATING TAB 5MG PO PRN (09:56)
[2022-10-06 18:00] VITALS: BP 138/80
[2022-10-07 06:45] VITALS: BP 132/66
[2022-10-07] MEDS: PALIPERIDONE 3MG ER TAB (INVEGA) PO SCH ×2 (09:33→20:26)
[2022-10-07 18:47] VITALS: BP 102/60
[2022-10-08 06:51] VITALS: BP 125/69
[2022-10-08] MEDS: PALIPERIDONE 3MG ER TAB (INVEGA) PO SCH ×2 (10:18→20:48)
[2022-10-08 16:15] VITALS: BP 136/64
[2022-10-09 07:04] VITALS: BP 154/64
[2022-10-09] MEDS: PALIPERIDONE 3MG ER TAB (INVEGA) PO SCH (09:54)
[2022-10-09] MEDS ORDERED: TRAZ-252 PO (11:16)
[2022-10-09] MEDS ORDERED: SENN-52 PO (11:16)
[2022-10-09] MEDS ORDERED: INVE234I IM (11:21)
[2022-10-09] MEDS ORDERED: PALIPERIDONE PAL 156MG/1ML INJ(INVEGA)(FREE PSY INPT ONLY) IM ONE (13:00)
== END 2022-10-09 15:13 | disposition home or self-care (01) | DRG 885 ==
LOC: M ED 06:58 → M PSY 14:31
PROVIDERS: ADMIT Psychiatry & Neurology Psychiatry; ATTEND Psychiatry & Neurology Psychiatry
DX: F25.1 Schizoaffective disorder, depressive type (principal); R45.851 Suicidal ideations; E78.5 Hyperlipidemia, unspecified; I10 Essential (primary) hypertension; K59.09 Other constipation; F41.9 Anxiety disorder, unspecified; Z20.822 Contact with and (suspected) exposure to COVID-19; Z88.8 Allergy status to other drugs, medicaments and biological substances; Z63.8 Other specified problems related to primary support group